=== PATIENT | female | born 1965 | race Caucasian/White ===

== ENCOUNTER → 2025-01-18 | Outpatient (CLI) | payer BC, SELFPAY ==
--- NOTE | 2025-01-18 07:49 | VDLE_ITS ---
Reason For Study Reason For Study: RLE Pain RIGHT LEFT CFV is compressible, phasic, and INCOMPETENT for CFV is compressible, spontaneous, phasic, competent, greater than 1.0 second. and demonstrates normal augmentation. FV is compressible, spontaneous, phasic, competent and demonstrates normal augmentation. POP V is compressible, spontaneous, phasic, competent and demonstrates normal augmentation. T/P Trunk is compressible. PTV is compressible. RT PerV is compressible. SFJ is INCOMPETENT and measures 0.62 cm. GSV proximal thigh measures 0.63 x 0.64 cm. GSV at knee measures 1.37 x 1.92 cm. GSV INCOMPETENT throughout for greater than 0.5 seconds. SSV mid calf is competent and measures 0.29 x 0.36 cm. Perforating vessel mid calf is INCOMPETENT for greater than 0.5 seconds and measures 0.33 cm. Perforating vessel distal calf is INCOMPETENT for greater than 0.5 seconds and measures 0.38 cm. Procedure This is a venous duplex using B-mode, color flow and spectral Doppler. Exam performed in department. The exam was diagnostic. VL/Venous Duplex US, Unilateral Interpretation Summary Deep veins of the right lower extremity are patent and compressible segmentally . There is no evidence of right lower extremity deep vein thrombosis. The right great saphenous vein appears patent a nd compressible segmentally. Positive for reflux in the right common femoral vein, saphenofemoral junction, great saphenous vein throughout, retail leader veins in mid and distal calf Ordering Physician: Faiza Mcwilliams Referring Physician: Renee Avila Performed By: Sang Marquez RVT
== END | disposition home or self-care (01) ==
PROVIDERS: PCP Nurse Practitioner Family; Referring Provider Physician Assistant; Visit Provider Physician Assistant
DX: I83.891 Varicose veins of right lower extremity with other complications (principal); I83.009 Varicose veins of unspecified lower extremity with ulcer of unspecified site; L97.901 Non-pressure chronic ulcer of unspecified part of unspecified lower leg limited to breakdown of skin; I87.2 Venous insufficiency (chronic) (peripheral)
CPT/HCPCS: 93971

== ENCOUNTER 2025-03-13 06:42 | Day surgery (SDC) | payer BC, SELFPAY ==
[2025-03-12 08:30] VITALS: BMI 27.4
--- NOTE | 2025-03-13 07:53 | PCM.HP.STD ---
HPI - General HPI Narrative TAYLOR RUEDA, is a 59 F who presents with persistent venous stasis dermatitis in the R medial lower leg; has had venous ulceration in this location prior as well. Her dermatitis symptoms improve with topical steroid application, but quickly recur when she discontinues steroid. This has been persistent despite her adherence to conservative management measures including compression, leg elevation, and avoidance of prolonged idle sitting/standing. [facility] Medical History Wears glasses Home Medications Medication Instructions Recorded Last Taken Type conjugated estrogens 0.3 mg tablet 0.3 mg PO QDAY 12/26/24 Unknown History (Premarin) triamcinolone acetonide 0.025 % 1 applic topical QDAY PRN rash 12/26/24 Unknown History topical cream Allergy/AdvReac Type Severity Reaction Status Date / Time No Known Allergies Allergy Verified 02/07/25 10:29 Family History Other CVA (cerebral vascular accident) Cancer Heart disease Hypertension Myocardial infarction Social History Smoking Status: Never smoker ROS Constitutional Constitutional: Denies chills, fever(s), frequent falls, lethargy or weakness Eyes Eyes: Denies blind spots, change in vision or loss of vision ENT HEENT: Denies bleeding gums, hoarseness or sore throat Cardiovascular Cardiovascular: Denies abdominal pain, bluish discoloration of hand/feet, chest pain with activity, claudication, cold extremities, cyanosis, dyspnea on exertion, erythema on extremities, irregular heart rhythm, leg edema, leg ulcers, numbness in extremities or weakness in extremities Respiratory/Chest Respiratory/Chest: Denies cough, excessive phlegm production, shortness of breath at rest, shortness of breath with exertion or wheezing Gastrointestinal Gastrointestinal: Denies anorexia, change in stool character, constipation, diarrhea, melena or rectal bleeding Genitourinary Genitourinary: Denies dysuria or hematuria Musculoskeletal Musculoskeletal: Denies abnormal gait Integumentary Integumentary: Reports other Details: ; Denies erythema, non-healing lesions or wounds Neurologic Neurologic: Denies abnormal speech, focal weakness, headache(s), loss of vision, numbness, paresthesias or sensory deficit Hematologic/Lymphatic Hematologic/Lymphatic: Denies easy bleeding, easy bruising or lymphadenopathy Vital Signs Vital Signs Vital Signs: Weight Weight: 136 lb Body Mass Index (BMI) 27.4 Physical Exam Const alert, oriented x3, no apparent distress and healthy appearing General Appearance: cooperative; Negative for combative or lethargic Orientation / Consciousness: awake Exam Limitations: no limitations HEENT Head and Scalp: normocephalic and atraumatic Eyes EOMs intact bilaterally General Eye: normal appearance of both eyes Neck full ROM General: trachea midline Resp normal respiratory effort and no use of accessory muscles Effort and Inspection: Negative for labored, stridor or audible wheezes Cardio regular rate and regular rhythm Back/Spine Cervical Spine: cervical ROM normal Neuro oriented x3, CN's II-XII intact bilaterally, no focal motor deficits and no sensory deficits noted Psych thought process normal, cooperative, affect normal, speech normal and activity/motor behavior normal Assessment & Plan Assessment/Plan (1) Venous stasis ulcer limited to breakdown of skin with varicose veins: QUALIFIERS: Venous stasis ulcer site: ankle Laterality: right Qualified Code(s): I83.013 - 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
--- NOTE | 2025-03-13 14:38 | OP.PCM_ITS ---
Operative Report (Standard) Operative Information Date of Procedure: 03/13/25 Pre-Operative Diagnosis: Venous insufficiency with stasis dermatitis of the right medial lower leg and varicosities Post-Operative Diagnosis: Same Surgery/Procedure Performed: Aborted chemical ablation of the right accessory saphenous vein due to vessel tortuosity and inability to advance wires for access senior environmental scientist: No Type of Anesthesia: Local and Sedation,Conscious Procedure Start Time: 08:30 Procedure Stop Time: 09:00 Select all DRAINS/GRAFTS/IMPLANTS that apply: None Estimated Blood Loss: 5 Specimen collected: No Description of surgery: HPI: Patient is a 59-year-old female with venous insufficiency the right lower extremity with stasis dermatitis that has persisted and worsened despite compliance with compression therapy. She has a single segment saphenous vein that actually appears to be accessory saphenous that is continuous from the saphenofemoral junction to the ankle with reflux throughout. Multiple varicosities emanate from this vessel and there are also segments of enlargement intermittently throughout the length of the vein with adjacent smaller caliber segments. She is taken now for planned chemical ablation. Description of procedure: Upon obtaining informed consent and verification correct patient procedure site the patient was taken the Grease Worker where she was positioned prepped and draped in usual sterile fashion. Timeouts performed consultation administered Versed and fentanyl. Ultrasound used to evaluate saphenous vein from the ankle to the saphenofemoral junction found to be continuous but with areas of enlarged discrete segments and also that the intervening segments were smaller caliber than they had been on the mapping likely due to spasm. We located a position that appeared to be favorable for access and the skin was anesthetized with 1% lidocaine. Utilizing a micropuncture needle wire we accessed the saphenous vein in the mid calf and were able to successfully gain access however the wire would not traverse the areas of a large caliber successfully. After multiple efforts to redirect we decided to access the vessel more cephalad on the leg and again were able to make successful access but unable to advance her wire beyond the next area of an large caliber. After multiple efforts to redirect and reaccessed at these locations we decided that this was futile so efforts were ceased. And pressure was held over the access sites and dry sterile dressing applied. Is felt that the patient would be a potential candidate for foam sclerotherapy with Varithena to treat the truncal vein and/or focal warehouse associate ablation for the 2 perforators in the calf. The patient was taken the recovery area with plan discharged home with possible return for secondary efforts. Surgical Findings: Tortuous accessory saphenous vein which was the dominant saphenous vein in the right lower extremity with multiple areas of enlargement with adjacent small caliber outflow vessel Complications Complications: Yes Complication Details: Failure to successfully gain access
== END 2025-03-13 10:00 | disposition home or self-care (01) ==
PROVIDERS: PCP Nurse Practitioner Family; Referring Provider Surgery Trauma Surgery; Visit Provider Surgery Trauma Surgery
DX: I87.2 Venous insufficiency (chronic) (peripheral) (principal); L97.311 Non-pressure chronic ulcer of right ankle limited to breakdown of skin; I83.013 Varicose veins of right lower extremity with ulcer of ankle; Z53.09 Procedure and treatment not carried out because of other contraindication
CPT/HCPCS: 36482; 76937; 99152; 99153; C1894; C1769

== ENCOUNTER 2025-05-02 08:18 | Day surgery (SDC) | payer BC, SELFPAY ==
[2025-05-01 08:35] VITALS: BMI 27.3
--- NOTE | 2025-05-02 13:35 | OP.PCM_ITS ---
Operative Report (Standard) Operative Information Date of Procedure: 05/02/25 Pre-Operative Diagnosis: Varicose veins with pain and recurrent stasis dermatitis and ulceration of the right lower extremity with incompetent great saphenous vein and perforators Post-Operative Diagnosis: Same Surgery/Procedure Performed: Radiofrequency ablation of right calf certified nursing assistant instructor veins x 3 hydrographical technical officer: No Type of Anesthesia: Local and Sedation,Conscious Procedure Start Time: 09:45 Procedure Stop Time: 10:30 Select all DRAINS/GRAFTS/IMPLANTS that apply: None Estimated Blood Loss: 4 Specimen collected: No Description of surgery: HPI: Patient is a 59-year-old female with varicose veins with pain of the right lower extremity as well as stasis dermatitis and skin breakdown. She has valvular incompetence in the great saphenous vein though this vessel is very tortuous with multiple branches requiring foam sclerotherapy rather than traditional ablation. She also has 3 large certified nursing assistant instructor veins distributed throughout the calf that also have incompetence. She is taken now for certified nursing assistant instructor ablation. Description of procedure: Upon obtaining informed consent and verification of correct patient procedure and site the patient was taken to the Dental Billing Specialist where she was positioned prepped and draped in usual sterile fashion. Timeouts performed consultation administered Versed and and fentanyl ultrasound used to evaluate the certified nursing assistant instructor veins all of which had adequate depth to treat with the ablation probe. Skin overlying the more distal certified nursing assistant instructor was anesthetized 1% lidocaine and skin incision made with 11 blade. Through the puncture the ablation stylette was advanced under ultrasound guidance accessing the certified nursing assistant instructor vein. The ablation generator displayed satisfactory resistance of 200 to 400 ohms. The generator was then activated for total of 8 minutes in the 4 quadrants of the certified nursing assistant instructor vein after which the stylette was withdrawn. The vein was then evaluated ultrasound and found to have been ablated in satisfactory fashion. Next the skin overlying the second certified nursing assistant instructor vein was Nestabs 1% lidocaine and skin incision made with 11 blade. Through the puncture site the stylette was advanced under ultrasound guidance accessing the perf orator vein. Again the ablation generator displayed satisfactory assistance of 200 to 400 ohms. The generator was then activated for total of 8 minutes in the 4 quadrants of the certified nursing assistant instructor vein after which the stylette was withdrawn. The vein was evaluated ultrasound found to have been ablated in satisfactory fashion. Finally skin overlying the third certified nursing assistant instructor vein was anesthetized 1% lidocaine skin incision made with 11 blade. Through the puncture site the stylette was advanced under ultrasound guidance access in the certified nursing assistant instructor vein. The ablation generator displayed satisfactory distance of 200 400 ohms so it was then activated for total of 8 minutes in the 4 quadrants of the certified nursing assistant instructor. After completion of therapy the certified nursing assistant instructor stylette was withdrawn and the vessel assessed ultrasound and found to be ablated in satisfactory fashion. [place] dressing was then applied followed by Raffi wrap's to the knee afterwards the patient was taken to the recovery area with plan discharged home. Surgical Findings: See above Complications Complications: No
== END 2025-05-02 11:30 | disposition home or self-care (01) ==
PROVIDERS: PCP Nurse Practitioner Family; Referring Provider Surgery Trauma Surgery; Visit Provider Surgery Trauma Surgery
DX: I87.2 Venous insufficiency (chronic) (peripheral) (principal); I83.013 Varicose veins of right lower extremity with ulcer of ankle; L97.311 Non-pressure chronic ulcer of right ankle limited to breakdown of skin; I83.811 Varicose veins of right lower extremity with pain; I83.891 Varicose veins of right lower extremity with other complications
CPT/HCPCS: 36475; 36476; 99152; 99153; C1888

== ENCOUNTER 2025-05-09 09:24 | Day surgery (SDC) | payer BC, SELFPAY ==
[2025-05-02 08:36] VITALS: BMI 21.4
--- NOTE | 2025-05-09 19:38 | PCM.OPRPT ---
Operative Report (Standard) Operative Information Date of Procedure: 05/09/25 Pre-Operative Diagnosis: Venous insufficiency with recurrent though healed ulceration and chronic dermatitis Post-Operative Diagnosis: Same Surgery/Procedure Performed: Foam ablation of the right great saphenous vein wine bottle inspector: No Type of Anesthesia: Local Procedure Start Time: 12:45 Procedure Stop Time: 13:15 Select all DRAINS/GRAFTS/IMPLANTS that apply: None Estimated Blood Loss: 3 Specimen collected: No Description of surgery: HPI: Patient is a 59-year-old female with recurrent episodes of ulceration of the right lower extremity and venous stasis dermatitis with reflux throughout the great saphenous vein as well as multiple control systems developer veins. She previously had the control systems developer veins treated with thermal ablation she presents now for foam sclerosant of the great saphenous vein. Description of procedure: Upon obtaining informed consent and verification correct patient procedure site the patient was taken to the Hazmat Tanker Driver she was position prepped and draped in usual sterile fashion. Ultrasound was used to evaluate the great saphenous vein from the distal calf to the saphenofemoral junction. Given the length of treatment is felt the 2 access sites for foam infusion were required so skin overlying the great saphenous vein in the proximal calf was anesthetized 1% lidocaine the vessel accessed under ultrasound guidance with a micropuncture needle wire. This was exchanged for a micropuncture sheath which was advanced without resistance. Next the skin overlying the great saphenous vein in the distal calf was anesthetized 1% lidocaine and the vessel accessed under ultrasound guidance with a micropuncture needle and wire. This is then exchanged for a second micropuncture sheath which was advanced over the wire without resistance. Foam sclerosant was then infused via the proximal calf access sheath under ultrasound visualization until it reached approximately 5 cm distal to the saphenofemoral junction at which point manual pressure was held for 3 minutes. When pressure was released the foam had ceased its transit at the site of compression and there was adequate filling of the great saphenous vein down to the access site. Next additional foam was infused via the great saphenous at the distal calf under ultrasound visualization until its transit had reached the initial access site. The saphenofemoral junction was again assessed with ultrasound and found to be patent with no evidence of further foam transit and no evidence of thrombus. The access sheath withdrawn manner pressure held till hemostasis was obtained. Dry sterile dressing and Raffi wrap were then applied the patient was taken the recovery area with plan discharge to home. Surgical Findings: See above Complications Complications: No
--- NOTE | 2025-05-09 19:38 | PCM.OPRPT ---
Operative Report (Standard) Operative Information Date of Procedure: 05/09/25 Pre-Operative Diagnosis: Venous insufficiency with recurrent though healed ulceration and chronic dermatitis Post-Operative Diagnosis: Same Surgery/Procedure Performed: Foam ablation of the right great saphenous vein emergency dispatcher: No Type of Anesthesia: Local Procedure Start Time: 12:45 Procedure Stop Time: 13:15 Select all DRAINS/GRAFTS/IMPLANTS that apply: None Estimated Blood Loss: 3 Specimen collected: No Description of surgery: HPI: Patient is a 59-year-old female with recurrent episodes of ulceration of the right lower extremity and venous stasis dermatitis with reflux throughout the great saphenous vein as well as multiple coagulating operator veins. She previously had the coagulating operator veins treated with thermal ablation she presents now for foam sclerosant of the great saphenous vein. Description of procedure: Upon obtaining informed consent and verification correct patient procedure site the patient was taken to the Optical Design Engineer she was position prepped and draped in usual sterile fashion. Ultrasound was used to evaluate the great saphenous vein from the distal calf to the saphenofemoral junction. Given the length of treatment is felt the 2 access sites for foam infusion were required so skin overlying the great saphenous vein in the proximal calf was anesthetized 1% lidocaine the vessel accessed under ultrasound guidance with a micropuncture needle wire. This was exchanged for a micropuncture sheath which was advanced without resistance. Next the skin overlying the great saphenous vein in the distal calf was anesthetized 1% lidocaine and the vessel accessed under ultrasound guidance with a micropuncture needle and wire. This is then exchanged for a second micropuncture sheath which was advanced over the wire without resistance. Foam sclerosant was then infused via the proximal calf access sheath under ultrasound visualization until it reached approximately 5 cm distal to the saphenofemoral junction at which point manual pressure was held for 3 minutes. When pressure was released the foam had ceased its transit at the site of compression and there was adequate filling of the great saphenous vein down to the access site. Next additional foam was infused via the great saphenous at the distal calf under ultrasound visualization until its transit had reached the initial access site. The saphenofemoral junction was again assessed with ultrasound and found to be patent with no evidence of further foam transit and no evidence of thrombus. The access sheath withdrawn manner pressure held till hemostasis was obtained. Dry sterile dressing and Raffi wrap were then applied the patient was taken the recovery area with plan discharge to home. Surgical Findings: See above Complications Complications: No
== END 2025-05-09 13:40 | disposition home or self-care (01) ==
PROVIDERS: PCP Nurse Practitioner Family; Referring Provider Surgery Trauma Surgery; Visit Provider Surgery Trauma Surgery
DX: I87.2 Venous insufficiency (chronic) (peripheral) (principal); I83.013 Varicose veins of right lower extremity with ulcer of ankle; L97.311 Non-pressure chronic ulcer of right ankle limited to breakdown of skin; I83.891 Varicose veins of right lower extremity with other complications; L30.9 Dermatitis, unspecified
CPT/HCPCS: 36465; C1894

== ENCOUNTER → 2025-05-13 | Outpatient (CLI) | payer BC, SELFPAY ==
--- NOTE | 2025-05-13 08:52 | VDLE_ITS ---
Reason For Study Reason For Study: Right leg pain RIGHT LEFT CFV is compressible, spontaneous, phasic, competent CFV is compressible, spontaneous, phasic, competent, and demonstrates normal augmentation. and demonstrates normal augmentation. FV is compressible, spontaneous, phasic, competent and demonstrates normal augmentation. POP V is compressible, spontaneous, phasic, competent and demonstrates normal augmentation. T/P Trunk is compressible. PTV is compressible. RT PerV is compressible. GSV is occluded throught s/p Verithena ablation. Perforators noted in the calf s/p ablation. Procedure This is a venous duplex using B-mode, color flow and spectral Doppler. Exam performed in department. VL/Venous Duplex US, Unilateral Interpretation Summary Deep veins of the right lower extremity are patent and compressible segmentally . There is no evidence of right lower extremity deep vein thrombosis. Right great saphenous vein occluded consistent with recent ablation. Right calf platform inspector veins occluded consistent with recent ablation. Ordering Physician: Faiza Mcwilliams Referring Physician: Renee Avila Performed By: Hannah Arreguin RVT
== END | disposition home or self-care (01) ==
LOC: CVS 08:51
PROVIDERS: PCP Nurse Practitioner Family; Referring Provider Surgery Trauma Surgery; Visit Provider Surgery Trauma Surgery
DX: I83.013 Varicose veins of right lower extremity with ulcer of ankle (principal); L97.311 Non-pressure chronic ulcer of right ankle limited to breakdown of skin; I83.891 Varicose veins of right lower extremity with other complications; I87.2 Venous insufficiency (chronic) (peripheral); Z48.812 Encounter for surgical aftercare following surgery on the circulatory system
CPT/HCPCS: 93971

== ENCOUNTER → 2025-05-16 | Outpatient (CLI) | payer BC, SELFPAY ==
--- NOTE | 2025-05-16 10:52 | VDLE_ITS ---
Reason For Study Reason For Study: Pain RIGHT LEFT CFV is compressible, spontaneous, phasic, competent CFV is compressible, spontaneous, phasic, competent, and demonstrates normal augmentation. and demonstrates normal augmentation. FV is compressible, spontaneous, phasic, competent and demonstrates normal augmentation. POP V is compressible, spontaneous, phasic, competent and demonstrates normal augmentation. T/P Trunk is compressible. PTV is compressible. RT PerV is compressible. GSV is occluded throught s/p Verithena ablation. Perforators noted in the calf s/p ablation. Procedure This is a venous duplex using B-mode, color flow and spectral Doppler. Exam performed in department. A preliminary report was called and/or faxed to [facility]. VL/Venous Duplex US, Unilateral Interpretation Summary Deep veins of the right lower extremity are patent and compressible segmentally . There is no evidence of right lower extremity deep vein thrombosis. Right great saphenous vein occluded consistent with recent ablation. Right calf abrasive worker veins occluded consistent with recent ablation. Ordering Physician: Faiza Mcwilliams Referring Physician: Faiza Mcwilliams Performed By: Megan Cervantes RVT
--- OUTSIDE RECORDS SUMMARY | 2025-05-16 21:32 | XMS RPT_ITS | CCD ---
Author Organization [facility] Care Team Providers Care Renal Social Worker Name Role Phone [facility]USTIN NEUROLOGY STROKE PHYSICIAN-DUTY OFFICER, RENEE Funez Primary Care Physician KEYANNA HERR Attending Unavailable AVILA NEUROLOGY STROKE PHYSICIAN-DUTY OFFICER, RENEE Funez Primary Care Unavai lable AVILA NEUROLOGY STROKE PHYSICIAN-DUTY OFFICER, RENEE Funez Attending Unavai lable AVILA NEUROLOGY STROKE PHYSICIAN-DUTY OFFICER, RENEE Funez Primary Care Unavai lable AVILA NEUROLOGY STROKE PHYSICIAN-DUTY OFFICER, RENEE Funez Attending Unavai lable AVILA NEUROLOGY STROKE PHYSICIAN-DUTY OFFICER, RENEE Funez Primary Care PHOEBE Mejía MD Attending Unavailable AVILA NEUROLOGY STROKE PHYSICIAN-DUTY OFFICER, RENEE Funez Primary Care Unavai lable AVILA NEUROLOGY STROKE PHYSICIAN-DUTY OFFICER, RENEE Funez Attending Unavai lable AVILA NEUROLOGY STROKE PHYSICIAN-DUTY OFFICER, RENEE Funez Primary Care Faiza Orozco Attending Provider Austin VARGAS-CRenee Primary Care Provider Dr. Balbina Elder MD Referring Provider [phone] Faiza Braswell Referring Provider [phone] Roly Flores MD Attending Provider Austin VARGAS-CRenee Referring Provider Dr. Roly Flores MD Referring Provider Dr. Roly Flores MD Other Provider AUSTIN MATTHEWS-MICHELLE, RENEE Funez Primary Care Physician [facility]IN NEUROLOGY STROKE PHYSICIAN-DUTY OFFICER, RENEE Funez Primary Care Unavai lable AVILA NEUROLOGY STROKE PHYSICIAN-DUTY OFFICER, RENEE Funez Attending Unavai lable AVILA NEUROLOGY STROKE PHYSICIAN-DUTY OFFICER, RENEE Funez Primary Care Ladarius KELLEY MD, PHOEBE Le Attending Unavailable Avila ASIAN ART CURATOR-C, [facility] Care Provider Poppy LEACH, Faiza Attending Provider [phone] Balbina Elder Referring Unavailable Avila ASIAN ART CURATOR, [facility] Unavailable Mcwilliams, Faiza Attending Unavailable Mark, Roly Attending Unavailable Avila ASIAN ART CURATOR, [facility] Unavailable Paoli, Roly Attending Unavailable Paoli, Roly Referring Unavailable Avila ASIAN ART CURATOR, [facility] Care Unavailable Avila ASIAN ART CURATOR, [facility] Unavailable Mcwilliams, Faiza Referring Unavailable Mcwilliams, Faiza Attending Unavailable Paoli, Roly Attending Unavailable Paoli, Roly Referring Unavailable Avila ASIAN ART CURATOR, [facility] Care Unavailable Paoli, Roly Attending Unavailable Paoli, Roly Referring Unavailable Avila ASIAN ART CURATOR, [facility] Unavailable Mark, Roly Attending Unavailable Mark, Roly Referring Unavailable Avila ASIAN ART CURATOR, [facility] Care Unavailable Mark, Roly Attending Unavailable Mcwilliams, Faiza Referring Unavailable Avila ASIAN ART CURATOR, [facility] Care Unavailable Paoli, Roly Attending Unavailable Mark, Roly Consulting Unavailable Mark, Roly Referring Unavailable Avila ASIAN ART CURATOR, [facility] Care Unavailable Paoli, Roly Attending Unavailable Mark, Roly Consulting Unavailable Paoli, Roly Referring Unavailable Avila ASIAN ART CURATOR, [facility] Care Unavailable Paoli, Roly Attending Unavailable Mark, Roly Consulting Unavailable Mark, Roly Referring Unavailable Avila ASIAN ART CURATOR, [facility] Care Unavailable Avila ASIAN ART CURATOR, [facility] Referring Unavailable Mcwilliams, Faiza Attending Unavailable Avila ASIAN ART CURATOR, [facility] Care Unavailable Mcwilliams, Faiza Attending Unavailable Avila ASIAN ART CURATOR, [facility] Care Unavailable Avila ASIAN ART CURATOR, [facility] Referring Unavailable Medications Current Medications Medication Drug Class(es) Dates Sig (Normalized) Sig (Original) estrogens, conjugated (mcfp) 0.3 mg oral tablet (11 sources) Estrogen Start: 12-26-2024 take 1 tablet by mouth once daily Conjugated Estrogens (Premarin) 0.3 mg tablet Active 0.3 mg PO daily December 26, 2024 1:00am cyclically Start: 12-14-2024 Premarin 0.625 mg/g vaginal cream with applicator See Instructions, 0.5 gram(s) Vaginal twice weekly, # 30 gram(s), 0 Refill(s), Pharmacy: [facility]/pharmacy #[id number], Menopausal vaginal dryness, 173, cm, 11/12/24 8:04:00 EST, Height, kg, 11/12/24 8:04:00 EST, Dosing Weight Start Date: 12/14/24 Status: Ordered Quantity: 30.0 Unit: g Repeat number: 1 Indications: Menopausal and female climacteric states; Start: 03-08-2024 Premarin 0.625 mg/g vaginal cream with applicator See Instructions, 0.5 gram(s) Vaginal twice weekly, # 30 gram(s), 0 Refill(s), Pharmacy: [facility] #[id number], Menopausal vaginal dryness, 172.5, cm, 03/08/24 9:02:00 EDT, Height, kg, 03/08/24 9:02:00 EDT, Dosing Weight Start Date: 03/08/24 Status: Ordered Multivitamin preparation (4 sources) Start: 05-09-2024 take 1 tablet by mouth once daily Multivitamin Dose = 1 tab(s), Oral, Daily, 0 Refill(s) Start Date: 05/09/24 Status: Ordered Repeat number: 1 Start: 05-09-2024 take 1 tablet by ricardo th once daily Multivitamin Dose = 1 tab(s), Oral, Daily, 0 Refill(s) Start Date: 05/09/24 Status: Ordered PEG-3350 with Electrolytes (Eqv-GoLYTELY) oral powder for reconstitution (2 sources) Start: 04-25-2024 PEG-3350 with Electrolytes (Eqv-GoLYTELY) oral powder for reconstitution See Instructions, Take as directed 1 day before colonoscopy. Follow instructions as provided by your GI provider at [facility]., # 1 EA, 0 Refill(s), Pharmacy: [facility] #[id number], 172, cm, 04/25/24 11:19:00 EDT, Height, kg, 04/25/24 11:19:00 EDT, Dosing Weight Start Date: 04/25/24 Status: Ordered triamcinolone acetonide 0.25 mg/ml topical cream (5 sources) Corticosteroid Start: 12-26-2024 Triamcinolone Acetonide 0.025 % cream Active 1 NMA TOPICAL daily as needed for rash December 26, 2024 1:00am Problems Problem Classification Problem Date Documented Date Episodic/Chronic Cancer of cervix (2 sources) Atypical squamous cells cannot exclude high grade squamous intraepithelial lesion on cytologic smear of cervix (ASC-H); Translations: [Atypical squamous cells cannot exclude high grade squamous intraepithelial lesion on cytologic smear] Onset: 05-28-2024 Episodic Chronic ulcer of skin (1 source) 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; Translations: [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] Onset: 04-01-2025 Chronic Other diseases of veins and lymphatics (14 sources) Disorder of vein of lower extremity; Translations: [Venous insufficiency (chronic) (peripheral)] 12-26-2024 Episodic Other diseases of veins and lymphatics (2 sources) Venous insufficiency (chronic) (peripheral); Translations: [Venous insufficiency (chronic) (peripheral)] Onset: 05-13-2025 Episodic Other female genital disorders (2 sources) Cervical intraepithelial neoplasia grade 1 06-21-2024 Episodic Other screening for suspected conditions (not mental disorders or infectious disease) (5 sources) Abnormal cytological finding in specimen from female genital organ; Translations: [Encounter for screening for malignant neoplasm of colon] Onset: 05-09-2024 05-28-2024 Episodic Unclassified (2 sources) Patient encounter status 12-20-2024 Varicose veins of lower extremity (20 sources) Venous varices; Translations: [Varicose veins of right lower extremity with other complications] Onset: 01-22-2025 12-26-2024 Episodic Results Test Name Value Interpretation Reference Range Facility Venous Duplex US, Unilateral on 05-13-2025 Venous Duplex US, Unilateral [facility] [address] [place] [address] Venous Duplex US, Unilateral 05/13/25 0905 MR#: [id number] Acct: [id number] Name: TAYLOR RUEDA Rep #: [id number] : 1965 59 From: Roly Flores MD Attending Dr: Dr. Roly Flores MD Status: SHANON DURÁN Ordering Dr: Faiza Mcwilliams Date: 05/13/25 Location: [facility] Sex: F C Admitted: Reason For Study Reason For Study: Right leg pain RIGHT LEFT CFV is compressible, spontaneous, phasic, competent CFV is compressible, spontaneous, phasic, competent, and demonstrates normal augmentation. and demonstrates normal augmentation. FV is compressible, spontaneous, phasic, competent and demonstrates normal augmentation. POP V is compressible, spontaneous, phasic, competent and demonstrates normal augmentation. T/P Trunk is compressible. PTV is compressible. RT PerV is compressible. GSV is occluded throught s/p Verithena ablation. Perforators noted in the calf s/p ablation. Procedure This is a venous duplex using B-mode, color flow and spectral Doppler. Exam performed in department. VL/Venous Duplex US, Unilateral Interpretation Summary Deep veins of the right lower extremity are patent and compressible segmentally. There is no evidence of right lower extremity deep vein thrombosis. Right great saphenous vein occluded consistent with recent ablation. Right calf senior software qa engineer veins occluded consistent with recent ablation. Ordering Physician: Faiza Mcwilliams Referring Physician: Renee Avila Performed By: Hannah Arreguin RVT 05/13/25 1113 Date Roly Flores MD CC: NAVID Avila; HANY Burch; Dr. Roly Flores MD Date Dictated: 05/13/25 09 Date Transcribed: 05/13/25 111 Fittings Tightener: Signed Normal [facility] Operative Reporton Operative Report [facility] Medical Records Department [address] [place] [address] Operative Report 05/09/25 1938 MR#: [id number] Acct: [id number] Name: MOHITTAYLOR IMER Rep #: [id number] : 1965 59 From: Roly Flores MD PCP: NAVID Lopez Status:[facility] Location: [facility] Operative Report (Standard) Operative Information Date of Procedure: 05/09/25 Pre-Operative Diagnosis: Venous insufficiency with recurrent though healed ulceration and chronic dermatitis Post-Operative Diagnosis: Same Surgery/Procedure Performed: Foam ablation of the right great saphenous vein pharmacy sales representative: No Type of Anesthesia: Local Procedure Start Time: 12:45 Procedure Stop Time: 13:15 Select all DRAINS/GRAFTS/IMPLANTS that apply: None Estimated Blood Loss: 3 Specimen collected: No Description of surgery: HPI: Patient is a 59-year-old female with recurrent episodes of ulceration of the right lower extremity and venous stasis dermatitis with reflux throughout the great saphenous vein as well as multiple senior software qa engineer veins. She previously had the senior software qa engineer veins treated with thermal ablation she presents now for foam sclerosant of the great saphenous vein. Description of procedure: Upon obtaining informed consent and verification correct patient procedure site the patient was taken to the Adjunct Spanish Instructor she was position prepped and draped in usual sterile fashion. Ultrasound was used to evaluate the great saphenous vein from the distal calf to the saphenofemoral junction. Given the length of treatment is felt the 2 access sites for foam infusion were required so skin overlying the great saphenous vein in the proximal calf was anesthetized 1% lidocaine the vessel accessed under ultrasound guidance with a micropuncture needle wire. This was exchanged for a micropuncture sheath which was advanced without resistance. Next the skin overlying the great saphenous vein in the distal calf was anesthetized 1% lidocaine and the vessel accessed under ultrasound guidance with a micropuncture needle and wire. This is then exchanged for a second micropuncture sheath which was advanced over the wire without resistance. Foam sclerosant was then infused via the proximal calf access sheath under ultrasound visualization until it reached approximately 5 cm distal to the saphenofemoral junction at which point manual pressure was held for 3 minutes. When pressure was released the foam had ceased its transit at the site of compression and there was adequate filling of the great saphenous vein down to the access site. Next additional foam was infused via the great saphenous at the distal calf under ultrasound visualization until its transit had reached the initial access site. The saphenofemoral junction was again assessed with ultrasound and found to be patent with no evidence of further foam transit and no evidence of thrombus. The access sheath withdrawn manner pressure held till hemostasis was obtained. Dry sterile dressing and Raffi wrap were then applied the patient was taken the recovery area with plan discharge to home. Surgical Findings: See above Complications Complications: No 05/09/251944 Cosigner Signature (if applicable): CC: NAVID Avila; Dr. Roly Flores MD Signed [facility] Operative Reporton Operative Report [facility] Medical Records Department [address] [place] [address] Operative Report 05/02/25 1335 MR#: [id number] Acct: [id number] Name: TAYLOR RUEDA Rep #: [id number] : 1965 59 From: Roly Flores MD PCP: NAVID Lopez [place] [place] [facility] Operative Report (Standard) Operative Information Date of Procedure: 05/02/25 Pre-Operative Diagnosis: Varicose veins with pain and recurrent stasis dermatitis and ulceration of the right lower extremity with incompetent great saphenous vein and perforators Post-Operative Diagnosis: Same Surgery/Procedure Performed: Radiofrequency ablation of right calf senior software qa engineer veins x 3 pharmacy sales representative: No Type of Anesthesia: Local and Sedation,Conscious Procedure Start Time: 09:45 Procedure Stop Time: 10:30 Select all DRAINS/GRAFTS/IMPLANTS that apply: None Estimated Blood Loss: 4 Specimen collected: No Description of surgery: HPI: Patient is a 59-year-old female with varicose veins with pain of the right lower extremity as well as stasis dermatitis and skin breakdown. She has valvular incompetence in the great saphenous vein though this vessel is very tortuous with multiple branches requiring foam sclerotherapy rather than traditional ablation. She also has 3 large senior software qa engineer veins distributed throughout the calf that also have incompetence. She is taken now for senior software qa engineer ablation. Description of procedure: Upon obtaining informed consent and verification of correct patient procedure and site the patient was taken to the Adjunct Spanish Instructor where she was positioned prepped and draped in usual sterile fashion. Timeouts performed consultation administered Versed and and fentanyl ultrasound used to evaluate the senior software qa engineer veins all of which had adequate depth to treat with the ablation probe. Skin overlying the more distal senior software qa engineer was anesthetized 1% lidocaine and skin incision made with 11 blade. Through the puncture the ablation stylette was advanced under ultrasound guidance accessing the senior software qa engineer vein. The ablation generator displayed satisfactory resistance of 200 to 400 ohms. The generator was then activated for total of 8 minutes in the 4 quadrants of the senior software qa engineer vein after which the stylette was withdrawn. The vein was then evaluated ultrasound and found to have been ablated in satisfactory fashion. Next the skin overlying the second senior software qa engineer vein was Nestabs 1% lidocaine and skin incision made with 11 blade. Through the puncture site the stylette was advanced under ultrasound guidance accessing the senior software qa engineer vein. Again the ablation generator displayed satisfactory assistance of 200 to 400 ohms. The generator was then activated for total of 8 minutes in the 4 quadrants of the senior software qa engineer vein after which the stylette was withdrawn. The vein was evaluated ultrasound found to have been ablated in satisfactory fashion. Finally skin overlying the third senior software qa engineer vein was anesthetized 1% lidocaine skin incision made with 11 blade. Through the puncture site the stylette was advanced under ultrasound guidance access in the senior software qa engineer vein. The ablation generator displayed satisfactory distance of 200 400 ohms so it was then activated for total of 8 minutes in the 4 quadrants of the senior software qa engineer. After completion of therapy the senior software qa engineer stylette was withdrawn and the vessel assessed ultrasound and found to be ablated in satisfactory fashion. [place] dressing was then applied followed by Raffi wrap's to the knee afterwards the patient was taken to the recovery area with plan discharged home. Surgical Findings: See above Complications Complications: No 05/02/25 1343 Cosigner Signature (if applicable): CC: NAVID Avila; Dr. Roly Flores MD Signed [facility] MR/BMS.BVSon 04-10-2025 MR/BMS.BVS [facility] [address] [place] [address] OFFICE VISIT Date of Service: 04/10/25 MR#: [id number] Acct: [id number] Name: TAYLOR RUEDA Rep #: [id number] : 1965 Provider: HANY Burch Age/Sex: 59/F Location: [facility] Status: Signed Intake Vital Signs 03/13/25 06:58 04/10/25 14:01 Height 4 ft 11 in Weight: 131 lb BP 147/83 H Blood Pressure Location Lt brachial Position Sitting Respiration 16 Pulse 85 Pulse Source Monitor Temp 97.3 F L Temp Source Temporal Pulse Oximetry (%) 97 Oxygen Delivery Method room air Intake Visit Reasons: Post Chemical Ablation 3-4 WK FU Allergies No Known Allergies Allergy (Verified 02/07/25 10:29) Is last menstrual period known: No Post menopausal: Yes Patient : No Have you fallen in the past year?: No PFSH Medical History (Updated 04/10/25 @ 14:01 by Brit Rose) Colon abnormality ( 05/2024) Wears glasses Family History Other CVA (cerebral vascular accident) Cancer Heart disease Hypertension Myocardial infarction Social History Smoking Status: Never smoker HPI HPI HPI: TAYLOR RUEDA, is a 59 F who presents to the office today for follow-up after aborted chemical adhesive ablation of the right accessory saphenous vein due to vessel tortuosity and inability to advance wires for access on 03/13/25. Given this, will now consider foam sclerotherapy +/- RFA of calf perforators. Recall that intervention is being pursued due to persistent/worsening venous stasis dermatitis in her right lower legs which corresponds to the location of incompetent perforators and saphenous vein identified on her recent venous reflux study. She also has a history of prior venous ulceration in the RLE as well though presently this is healed. ROS General General: No weight change, appetite, fatigue, colon cancer, breast cancer or weakness HEENT HEENT: No difficulty swallowing, eye injury, eye surgery, swollen glands or hoarseness Endo Endocrine: No thyroid disease, diabetes mellitus, thyroid cancer, Hair loss, heat intolerance or cold intolerance Skin Skin: Yes rash; No changing moles Musc Musculoskeletal: No back problems, arthritis, rheumatoid arthritis, gout or joint pain Cardio Cardiovascular: No murmur, pacemaker, heart disease, atrial fibrillation, high blood pressure, heart attack, heart stent, palpitations, shortness of breath with exertion or chest pain Psych Psychiatric: No depression, anxiety or hearing voices Resp Respiratory: No shortness of breath, No sleep apnea, No cough, No COPD, No asthma, No emphysema and No wheezing Gastro Gastrointestinal: No abdominal pain, No nausea or vomiting, No diarrhea, No constipation, No blood in stool, No acid reflux, No hemorrhoids, No ulcers, No gallbladder problem and No black,tarry stools Keven Hematologic: No blood thinners, No blood disorders, No bleeding, No anemia and No blood clots Neuro Neurologic: No system reviewed and no additional complaints, except as documented, No as per HPI, No abnormal gait, No abnormal hearing, No abnormal movements, No abnormal speech, No behavioral changes, No burning sensations, No confusion, No convulsions, No disequilibrium, No dizziness, No localized weakness, No frequent falls, Yes headache(s), No lack of coordination, No loss of vision, No memory loss, No numbness, No other visual disturbances, No radicular pain, No restless legs, No sensory deficit, No syncope, No tingling, No tremor(s), No weakness and No other Exam Const General: cooperative, comfortable and no acute distress Orientation: alert, awake and oriented x3 HENMT Head: normal to inspection, normocephalic and atraumatic Ears: hearing grossly normal bilaterally and external ears normal Nose: external nose normal Eyes General: appearance normal, both eyes and all related structures EOM: EOM intact bilaterally Neck Neck: normal visual inspection and trachea midline Carotids: no bruits Resp Effort Inspection: normal respiratory effort, able to speak in complete sentences, not labored, no respiratory distress, no retractions, no stridor and no use of accessory muscles Auscultation: clear to auscultation bilaterally Cardio Rate: regular rate Rhythm: regular rhythm Heart Sounds: no murmurs Bruits: no carotid bruits Pulses: brachial pulses present and radial pulses present Skin General: no rashes or lesions noted Trauma: no lacerations or abrasions Wounds: wounds noted Other: R medial lower leg with an area of focal red/purple discoloration with very superficial skin breakdown centrally with no significant drainage on my exam; no excess warmth to (more content not included)... [facility] .Auto Diffon 04-06-2025 Basophil, Absolute 0.0 10 3/mcL Normal 0.0-0.3 [facility] Comment on above: Performed By: #### G FR, ADIFF, CMP, ANEU, CBC, TSH, LIPID #### [address] [address] Basophils/100 WBC (Bld) 0.9 % Normal 0.0-2.5 [facility] Comment on above: Performed By: #### G FR, ADIFF, CMP, ANEU, CBC, TSH, LIPID #### [address] [address] Eosinophil, Absolute 0.1 10 3/mcL Normal 0.0-0.7 [facility] Comment on above: Performed By: #### G FR, ADIFF, CMP, ANEU, CBC, TSH, LIPID #### [address] [address] Eosinophils/100 WBC (Bld) 2.2 % Normal 0.0-6.0 [facility] Comment on above: Performed By: #### G FR, ADIFF, CMP, ANEU, CBC, TSH, LIPID #### [address] [address] Lymphocyte, Absolute 1.6 10 3/mcL Normal 0.9-4.3 [facility] Comment on above: Performed By: #### G FR, ADIFF, CMP, ANEU, CBC, TSH, LIPID #### [address] [address] Lymphocytes/100 WBC (Bld) 40.2 % High 20.0-40.0 [facility] Comment on above: Performed By: #### G FR, ADIFF, CMP, ANEU, CBC, TSH, LIPID #### [address] [address] Monocyte, Absolute 0.3 10 3/mcL Normal 0.1-1.4 [facility] Comment on above: Performed By: #### G FR, ADIFF, CMP, ANEU, CBC, TSH, LIPID #### [address] [address] Monocytes/100 WBC (Bld) 8.6 % Normal 2.0-13.0 [facility] Comment on above: Performed By: #### G FR, ADIFF, CMP, ANEU, CBC, TSH, LIPID #### [address] [address] Neutrophils/100 WBC (Bld) 48.1 % Low 50.0-75.0 [facility] Comment on above: Performed By: #### G FR, ADIFF, CMP, ANEU, CBC, TSH, LIPID #### [address] [address] .GFRon 04-06-2025 Estimated Glomerular Filtration Rate 99 ml/min/1.73sqm Normal [facility] Comment on above: Result Comment: Stages of Chronic Kidney Disease (CKD) Stage Description eGFR(ml/min/1.73 sq.m.) CKD 1 Normal kidney function or >=90 normal kindney function with possible kidney damage (ex. Proteinuria) CKD 2 Kidney damage with mild loss 60-89 of kidney function CKD 3a Mild to moderate loss of kidney 45-59 function CKD 3b Moderate to severe loss of 30-44 of kindey function CKD 4 Severe loss of kidney function 15-29 CKD 5 Kidney failure <15 Note: (go live 2024) the eGFR calculation was updated to the 2020 CKD-EPI creatinine equation without a race factor to calculate the eGFR results. Performed By: #### G FR, ADIFF, CMP, ANEU, CBC, TSH, LIPID #### [address] [address] .NEUABSon 04-06-2025 Neutrophil, Absolute 2.0 10 3/mcL Low 2.3-8.1 [facility] Comment on above: Performed By: #### G FR, ADIFF, CMP, ANEU, CBC, TSH, LIPID #### [address] [address] CBCon 04-06-2025 Erythrocyte distribution width (RBC) [Ratio] 13.0 % Normal 11.5-15.5 [facility] Comment on above: Performed By: #### G FR, ADIFF, CMP, ANEU, CBC, TSH, LIPID #### [address] [address] Hematocrit (Bld) [Volume fraction] 38.2 % Normal 34.0-46.0 [facility] Comment on above: Performed By: #### G FR, ADIFF, CMP, ANEU, CBC, TSH, LIPID #### [address] [address] Hgb 13.0 G/dL Normal 12.0-16.0 [facility] Comment on above: Performed By: #### G FR, ADIFF, CMP, ANEU, CBC, TSH, LIPID #### [place] [address] MCH (RBC) [Entitic mass] 30.5 pg Normal 27.0-33.0 [facility] Comment on above: Performed By: #### G FR, ADIFF, CMP, ANEU, CBC, TSH, LIPID #### [place] [address] MCHC 34.0 G/dL Normal 32.0-36.0 [facility] Comment on above: Performed By: #### G FR, ADIFF, CMP, ANEU, CBC, TSH, LIPID #### [address] [address] MCV (RBC) [Entitic vol] 89.7 fL Normal 80.0-99.0 [facility] Comment on above: Performed By: #### G FR, ADIFF, CMP, ANEU, CBC, TSH, LIPID #### [address] [address] Platelet 303 10 3/mcL Normal 150-450 [facility] Comment on above: Performed By: #### G FR, ADIFF, CMP, ANEU, CBC, TSH, LIPID #### [address] [address] Platelet mean volume (Bld) [Entitic vol] 8.1 fL Normal 6.6-10.5 [facility] Comment on above: Performed By: #### G FR, ADIFF, CMP, ANEU, CBC, TSH, LIPID #### [address] [address] RBC 4.26 10 6/mcL Normal 4.10-5.30 [facility] Comment on above: Performed By: #### G FR, ADIFF, CMP, ANEU, CBC, TSH, LIPID #### [address] [address] WBC 4.1 10 3/mcL Low 4.5-10.8 [facility] Comment on above: Performed By: #### G FR, ADIFF, CMP, ANEU, CBC, TSH, LIPID #### [address] [address] CMPon 04-06-2025 Albumin Level 3.7 G/dL Normal 3.4-4.8 [facility] Comment on above: Performed By: #### G FR, ADIFF, CMP, ANEU, CBC, TSH, LIPID #### [address] [address] Albumin/Globulin [Mass ratio] 1.1 {ratio} Normal 1.1-2.5 [facility] Comment on above: Performed By: #### G FR, ADIFF, CMP, ANEU, CBC, TSH, LIPID #### [address] [address] ALP [Catalytic activity/Vol] 54 U/L Normal 40-135 [facility] Comment on above: Performed By: #### G FR, ADIFF, CMP, ANEU, CBC, TSH, LIPID #### [address] [address] ALT [Catalytic activity/Vol] 23 U/L Normal 14-59 [facility] Comment on above: Performed By: #### G FR, ADIFF, CMP, ANEU, CBC, TSH, LIPID #### [address] [address] AST [Catalytic activity/Vol] 15 U/L Normal 10-40 [facility] Comment on above: Performed By: #### G FR, ADIFF, CMP, ANEU, CBC, TSH, LIPID #### [address] [address] Bili Total 0.7 mg/dL Normal 0.2-1.0 [facility] Comment on above: Result Comment: Use of this assay is not recommended for patients undergoing treatment with eltrombopag due to the potential for falsely elevated results. Performed By: #### G FR, ADIFF, CMP, ANEU, CBC, TSH, LIPID #### [address] [address] BUN/Creatinine Ratio 14 ratio Normal 7-27 [facility] Comment on above: Performed By: #### G FR, ADIFF, CMP, ANEU, CBC, TSH, LIPID #### [address] [address] Calcium [Mass/Vol] 9.0 mg/dL Normal 8.4-10.2 [facility] Comment on above: Performed By: #### G FR, ADIFF, CMP, ANEU, CBC, TSH, LIPID #### [address] [address] Chloride [Moles/Vol] 103 mmol/L Normal 98-107 [facility] Comment on above: Performed By: #### G FR, ADIFF, CMP, ANEU, CBC, TSH, LIPID #### [address] [address] CO2 [Moles/Vol] 29 mmol/L Normal 23-31 [facility] Comment on above: Performed By: #### G FR, ADIFF, CMP, ANEU, CBC, TSH, LIPID #### [address] [address] Creatinine [Mass/Vol] 0.70 mg/dL Normal 0.51-0.95 [facility] Comment on above: Performed By: #### G FR, ADIFF, CMP, ANEU, CBC, TSH, LIPID #### [address] [address] Electrolyte Balance 7.0 mEq/L Normal 4.0-15.0 [facility] Comment on above: Performed By: #### G FR, ADIFF, CMP, ANEU, CBC, TSH, LIPID #### [address] [address] Globulin 3.5 G/dL Normal 2.7-4.4 [facility] Comment on above: Performed By: #### G FR, ADIFF, CMP, ANEU, CBC, TSH, LIPID #### [address] [address] Glucose [Mass/Vol] 87 mg/dL Normal 80-115 [facility] Comment on above: Performed By: #### G FR, ADIFF, CMP, ANEU, CBC, TSH, LIPID #### [place] [address] [place], [place] [address] Potassium [Moles/Vol] 4.5 mmol/L Normal 3.5-5.1 [facility] Comment on above: Performed By: #### G FR, ADIFF, CMP, ANEU, CBC, TSH, LIPID #### [address] [address] Sodium [Moles/Vol] 139 mmol/L Normal 136-145 [facility] Comment on above: Performed By: #### G FR, ADIFF, CMP, ANEU, CBC, TSH, LIPID #### [address] [address] Total Protein 7.2 G/dL Normal 6.4-8.2 [facility] Comment on above: Performed By: #### G FR, ADIFF, CMP, ANEU, CBC, TSH, LIPID #### [address] [address] Urea nitrogen [Mass/Vol] 10 mg/dL Normal 7-18 [facility] Comment on above: Performed By: #### G FR, ADIFF, CMP, ANEU, CBC, TSH, LIPID #### [address] [address] LABORATORYOrdered By: SYSTEM SYSTEM on 04-06-2025 Albumin BCP dye [Mass/Vol] 3.7 G/dL Normal 3.4 - 4.8 G/dL AO ADM SS Albumin/Globulin [Mass ratio] 1.1 {ratio} Normal 1.1 - 2.5 ratio AO ADM SS ALP [Catalytic activity/Vol] 54 U/L Normal 40 - 135 U/L AO ADM SS ALT With P-5'-P [Catalytic activity/Vol] 23 U/L Normal 14 - 59 U/L AO ADM SS AST With P-5'-P [Catalytic activity/Vol] 15 U/L Normal 10 - 40 U/L AO ADM SS Basophils (Bld) [#/Vol] 0.0 103/mcL Normal 0.0 - 0.3 10^3/mcL AO Workflow SS Basophils/100 WBC (Bld) 0.9 % Normal 0.0 - 2.5 % AO Workflow SS Bilirubin [Mass/Vol] 0.7 mg/dL Normal 0.2 - 1 .0 mg/dL AO ADM SS Comment on above: Interpretive Data: U se of this assay is not recommended for patients undergoing treatment with eltrombopag due to the potential for falsely elevated results. Calcium [Mass/Vol] 9.0 mg/dL Normal 8.4 - 10. 2 mg/dL AO ADM SS Chloride [Moles/Vol] 103 mmol/L Normal 98 - 10 7 mmol/L AO ADM SS CO2 [Moles/Vol] 29 mmol/L Normal 23 - 31 mmol/L AO ADM SS Creatinine [Mass/Vol] 0.70 mg/dL Normal 0.51 - 0.95 mg/dL AO ADM SS Electrolyte Balance 7.0 mEq/L Normal 4.0 - 15 .0 mEq/L AO ADM SS Eosinophil, Absolute 0.1 103/mcL Normal 0.0 - 0 .7 10^3/mcL AO Workflow SS Eosinophils/100 WBC (Bld) 2.2 % Normal 0.0 - 6.0 % AO Workflow SS Erythrocyte distribution width (RBC) [Ratio] 13.0 % Normal 11.5 - 15.5 % AO Workflow SS Estimated Glomerular Filtration Rate 99 ml/min/1.73sqm Invalid Interpretation Code AO Chemistry S Comment on above: Interpretive Data: Stages of Chronic Kidney Disease (CKD) Stage Description eGFR(ml/min/1.73 sq.m.) CKD 1 Normal kidney function or >=90 normal kindney function with possible kidney damage (ex. Proteinuria) CKD 2 Kidney damage with mild loss 60-89 of kidney function CKD 3a Mild to moderate loss of kidney 45-59 function CKD 3b Moderate to severe loss of 30-44 of kindey function CKD 4 Severe loss of kidney function 15-29 CKD 5 Kidney failure <15 Note: (go live 2024) the eGFR calculation was updated to the 2020 CKD-EPI creatinine equation without a race factor to calculate the eGFR results. Globulin 3.5 G/dL Normal 2.7 - 4.4 G/dL AO ADM SS Glucose [Mass/Vol] 87 mg/dL Normal 80 - 115 mg/dL AO ADM SS Hematocrit (Bld) [Volume fraction] 38.2 % Normal 34.0 - 46.0 % AO Workflow SS Hemoglobin (Bld) [Mass/Vol] 13.0 G/dL Normal 12.0 - 16.0 G/dL AO Workflow SS Lymphocytes (Bld) [#/Vol] 1.6 103/mcL Normal 0.9 - 4.3 10^3/mcL AO Workflow SS Lymphocytes/100 WBC (Bld) 40.2 % High 20.0 - 40.0 % AO Workflow SS MCH (RBC) [Entitic mass] 30.5 pg Normal 27.0 - 33.0 pg AO Workflow SS MCHC 34.0 G/dL Normal 32.0 - 36.0 G/dL AO Workflow SS MCV (RBC) [Entitic vol] 89.7 fL Normal 80.0 - 99.0 fL AO Workflow SS Monocytes (Bld) [#/Vol] 0.3 103/mcL Normal 0.1 - 1.4 10^3/mcL AO Workflow SS Monocytes/100 WBC (Bld) 8.6 % Normal 2.0 - 13.0 % AO Workflow SS Neutrophils (Bld) [#/Vol] 2.0 103/mcL Low 2.3 - 8.1 10^3/mcL AO Workflow SS Neutrophils/100 WBC (Bld) 48.1 % Low 50.0 - 75.0 % AO Workflow SS Platelet mean volume (Bld) [Entitic vol] 8.1 fL Normal 6.6 - 10.5 fL AO Workflow SS Platelets (Bld) [#/Vol] 303 103/mcL Normal 150 - 450 10^3/mcL AO Workflow SS Potassium [Moles/Vol] 4.5 mmol/L Normal 3.5 - 5.1 mmol/L AO ADM SS Protein [Mass/Vol] 7.2 G/dL Normal 6.4 - 8.2 G/dL AO ADM SS RBC (Bld) [#/Vol] 4.26 106/mcL Normal 4.10 - 5.3 0 10^6/mcL AO Workflow SS Sodium [Moles/Vol] 139 mmol/L Normal 136 - 145 mmol/L AO ADM SS TSH Qn 1.59 m[IU]/L Normal 0.36 - 3.74 mcIU/mL AO ADM SS Urea nitrogen [Mass/Vol] 10 mg/dL Normal 7 - 18 mg/dL AO ADM SS Urea nitrogen/Creatinine [Mass ratio] 14 ratio Normal 7 - 27 ratio AO ADM SS WBC (Bld) [#/Vol] 4.1 103/mcL Low 4.5 - 10.8 10^3/mcL AO Workflow SS LABORATORYOrdered By: Ely Chávez on 04-06-2025 Cholesterol [Mass/Vol] 198 mg/dL Normal 0 - 200 mg/dL AO ADM SS Comment on above: Interpretive Data: C holesterol Reference Interval: Less than 200 Desirable 200-239 Borderline high risk 240 and above High risk Cholesterol in HDL [Mass/Vol] 95 mg/dL High 40 - 60 mg/dL AO ADM SS Cholesterol in LDL [Mass/Vol] 95 mg/dL Normal 0 - 130 mg/dL AO ADM SS Triglyceride [Mass/Vol] 39 mg/dL Normal 0 - 150 mg/dL AO ADM SS Comment on above: Interpretive Data: T riglyceride Reference Interval: Less than 150 Normal 150-199 Borderline high risk 200-499 High risk 500 or higher Very high risk LIPIDon 04-06-2025 Cholesterol [Mass/Vol] 198 mg/dL Normal 0-200 [facility] Comment on above: Result Comment: Chol esterol Reference Interval: Less than 200 Desirable 200-239 Borderline high risk 240 and above High risk Performed By: #### G FR, ADIFF, CMP, ANEU, CBC, TSH, LIPID #### [place] [place], [place] [address] Cholesterol in HDL [Mass/Vol] 95 mg/dL High 40-60 [facility] Comment on above: Performed By: #### G FR, ADIFF, CMP, ANEU, CBC, TSH, LIPID #### [place] [address] [place], [place] [address] Cholesterol in LDL [Mass/Vol] 95 mg/dL Normal 0-130 [facility] Comment on above: Performed By: #### G FR, ADIFF, CMP, ANEU, CBC, TSH, LIPID #### [place] [address] [place], [place] [address] Triglyceride [Mass/Vol] 39 mg/dL Normal 0-150 [facility] Comment on above: Result Comment: Trig lyceride Reference Interval: Less than 150 Normal 150-199 Borderline high risk 200-499 High risk 500 or higher Very high risk Performed By: #### G FR, ADIFF, CMP, ANEU, CBC, TSH, LIPID #### [place] [address] [place], [place] [address] TSHon 04-06-2025 TSH Qn 1.59 m[IU]/L Normal 0.36-3.74 [facility] Comment on above: Performed By: #### G FR, ADIFF, CMP, ANEU, CBC, TSH, LIPID #### [place] [address] [place], [place] [address] Operative Reporton Operative Report [facility] Medical Records Department [address] [place] [address] Operative Report 03/13/25 1438 MR#: [id number] Acct: [id number] Name: TAYLOR RUEDA Rep #: [id number] : 1965 59 From: Roly Flores MD PCP: NAVID Lopez Status:[facility] Location: [facility] Operative Report (Standard) Operative Information Date of Procedure: 03/13/25 Pre-Operative Diagnosis: Venous insufficiency with stasis dermatitis of the right medial lower leg and varicosities Post-Operative Diagnosis: Same Surgery/Procedure Performed: Aborted chemical ablation of the right accessory saphenous vein due to vessel tortuosity and inability to advance wires for access pharmacy sales representative: No Type of Anesthesia: Local and Sedation,Conscious Procedure Start Time: 08:30 Procedure Stop Time: 09:00 Select all DRAINS/GRAFTS/IMPLANTS that apply: None Estimated Blood Loss: 5 Specimen collected: No Description of surgery: HPI: Patient is a 59-year-old female with venous insufficiency the right lower extremity with stasis dermatitis that has persisted and worsened despite compliance with compression therapy. She has a single segment saphenous vein that actually appears to be accessory saphenous that is continuous from the saphenofemoral junction to the ankle with reflux throughout. Multiple varicosities emanate from this vessel and there are also segments of enlargement intermittently throughout the length of the vein with adjacent smaller caliber segments. She is taken now for planned chemical ablation. Description of procedure: Upon obtaining informed consent and verification correct patient procedure site the patient was taken the Adjunct Spanish Instructor where she was positioned prepped and draped in usual sterile fashion. Timeouts performed consultation administered Versed and fentanyl. Ultrasound used to evaluate saphenous vein from the ankle to the saphenofemoral junction found to be continuous but with areas of enlarged discrete segments and also that the intervening segments were smaller caliber than they had been on the mapping likely due to spasm. We located a position that appeared to be favorable for access and the skin was anesthetized with 1% lidocaine. Utilizing a micropuncture needle wire we accessed the saphenous vein in the mid calf and were able to successfully gain access however the wire would not traverse the areas of a large caliber successfully. After multiple efforts to redirect we decided to access the vessel more cephalad on the leg and again were able to make successful access but unable to advance her wire beyond the next area of an large caliber. After multiple efforts to redirect and reaccessed at these locations we decided that this was futile so efforts were ceased. And pressure was held over the access sites and dry sterile dressing applied. Is felt that the patient would be a potential candidate for foam sclerotherapy with Varithena to treat the truncal vein and/or focal senior software qa engineer ablation for the 2 perforators in the calf. The patient was taken the recovery area with plan discharged home with possible return for secondary efforts. Surgical Findings: Tortuous accessory saphenous vein which was the dominant saphenous vein in the right lower extremity with multiple areas of enlargement with adjacent small caliber outflow vessel Complications Complications: Yes Complication Details: Failure to successfully gain access 03/13/25 4504 Cosigner Signature (if applicable): CC: NAVID Avila; Dr. Roly Flores MD Signed Normal [facility] MR/BMS.Loki 02-07-2025 MR/BMS.BEHZAD [facility] Vascular Surgery [address] [place] [address] OFFICE VISIT Date of Service: 02/07/25 MR#: [id number] Acct: [id number] Name: TAYLOR RUEDA Rep #: [id number] : 1965 Provider: HANY Burch Age/Sex: 59/F Location: [facility] Status: Signed Intake Vital Signs 02/07/25 10:28 Weight: 136 lb BP 139/87 H Blood Pressure Location Lt brachial Position Sitting Respiration 16 Pulse 64 Pulse Source Monitor Temp 98.2 F Temp Source Temporal Pulse Oximetry (%) 99 Oxygen Delivery Method room air Intake Visit Reasons: 6 WK FU Chief Complaint: establish care Is patient in pain?: No Allergies No Known Allergies Allergy (Verified 02/07/25 10:29) Medications ???Medication ???Instructions ???Recorded ???Confirmed ???Type conjugated estrogens 0.3 mg tablet 0.3 mg PO QDAY 12/26/24 02/07/25 History (Premarin) triamcinolone acetonide 0.025 % 1 applic topical QDAY PRN 12/26/24 02/07/25 History topical cream Is last menstrual period known: No Post menopausal: Yes Patient : No Have you fallen in the past year?: No PFSH Family History Other CVA (cerebral vascular accident) Cancer Heart disease Hypertension Myocardial infarction Social History Smoking Status: Never smoker HPI HPI HPI: TAYLOR RUEDA, is a 59 F who presents to the office today for follow-up of varicose veins and venous stasis dermatitis and to discuss venous reflux study results. She has persistent venous stasis dermatitis in the R medial lower leg; has had venous ulceration in this location prior as well. Her dermatitis symptoms improve with topical steroid application, but quickly recur when she discontinues steroid. This has been persistent despite her adherence to conservative management measures including compression, leg elevation, and avoidance of prolonged idle sitting/standing. ROS General General: No weight change, appetite, fatigue, colon cancer, breast cancer or weakness HEENT HEENT: No difficulty swallowing, eye injury, eye surgery, swollen glands or hoarseness Endo Endocrine: No thyroid disease, diabetes mellitus, thyroid cancer, Hair loss, heat intolerance or cold intolerance Skin Skin: Yes rash; No changing moles Musc Musculoskeletal: No back problems, arthritis, rheumatoid arthritis, gout or joint pain Cardio Cardiovascular: No murmur, pacemaker, heart disease, atrial fibrillation, high blood pressure, heart attack, heart stent, palpitations, shortness of breath with exertion or chest pain Psych Psychiatric: No depression, anxiety or hearing voices Resp Respiratory: No shortness of breath, No sleep apnea, No cough, No COPD, No asthma, No emphysema and No wheezing Gastro Gastrointestinal: No abdominal pain, No nausea or vomiting, No diarrhea, No constipation, No blood in stool, No acid reflux, No hemorrhoids, No ulcers, No gallbladder problem and No black,tarry stools Keven Hematologic: No blood thinners, No blood disorders, No bleeding, No anemia and No blood clots Neuro Neurologic: No system reviewed and no additional complaints, except as documented, No as per HPI, No abnormal gait, No abnormal hearing, No abnormal movements, No abnormal speech, No behavioral changes, No burning sensations, No confusion, No convulsions, No disequilibrium, No dizziness, No localized weakness, No frequent falls, No headache(s), No lack of coordination, No loss of vision, No memory loss, No numbness, No other visual disturbances, No radicular pain, No restless legs, No sensory deficit, No syncope, No tingling, No tremor(s), No weakness and No other Exam Const General: cooperative, comfortable and no acute distress Orientation: alert, awake and oriented x3 HENMT Head: normal to inspection, normocephalic and atraumatic Ears: hearing grossly normal bilaterally and external ears normal Nose: external nose normal Eyes General: appearance normal, both eyes and all related structures EOM: EOM intact bilaterally Neck Neck: normal visual inspection and trachea midline Carotids: no bruits Resp Effort Inspection: normal respiratory effort, able to speak in complete sentences, not labored, no respiratory distress, no retractions, no stridor and no use of accessory muscles Auscultation: clear to auscultation bilaterally Cardio Rate: regular rate Rhythm: regular rhythm Heart Sounds: no murmurs Bruits: no carotid bruits Pulses: brachial pulses present and radial pulses present Skin General: no rashes or lesions noted Trauma: no lacerations or abrasions Wounds: wounds noted Other: R medial lower leg with an area of focal red/purple discoloration with very super (more content not included)... Normal [facility] Venous duplex ultrasound rep ortOrdered By: Roly Flores on 01-21-2025 US Vein [facility] Cardi[facility] [address] [place] [address] Venous Duplex US, Unilateral 01/18/25 0807 MR#: [id number] Acct: [id number] Name: TAYLOR RUEDA Rep #:[id number] : 1965 59 From: Roly De Guzman Attending Dr: HANY Burch Stat us: REG CLI Ordering Dr: Faiza Mcwilliams Date: Location: CVS Sex: F C Admitted: Reason For Study Reason For Study: RLE Pain RIGHT LEFT CFV is compressible, phasic, and INCOMPETENT for CFV is compressible, spontaneous, phasic, competent, greater than 1.0 second. and demonstrates normal augmentation. FV is compressible, spontaneous, phasic, competent and demonstrates normal augmentation. POP V is compressible, spontaneous, phasic, competent and demonstrates normal augmentation. T/P Trunk is compressible. PTV is compressible. RT PerV is compressible. SFJ is INCOMPETENT and measures 0.62 cm. GSV proximal thigh measures 0.63 x 0.64 cm. GSV at knee measures 1.37 x 1.92 cm. GSV INCOMPETENT throughout for greater than 0.5 seconds. SSV mid calf is competent and measures 0.29 x 0.36 cm. Perforating vessel mid calf is INCOMPETENT for greater than 0.5 seconds and measures 0.33 cm. Perforating vessel distal calf is INCOMPETENT for greater than 0.5 seconds and measures 0.38 cm. Procedure This is a venous duplex using B-mode, color flow and spectral Doppler. Exam performed in department. The exam was diagnostic. VL/Venous Duplex US, Unilateral Interpretation Summary Deep veins of the right lower extremity are patent and compressible segmentally.There is no evidence of right lower extremity deep vein thrombosis. The right great saphenous vein appears patent and compressible segmentally. Positive for reflux in the right common femoral vein, saphenofemoral junction, great saphenous vein throughout, senior software qa engineer veins in mid and distal calf Ordering Physician: Faiza Mcwilliams Referring Physician: Renee Avila Performed By: Sang Marquez, RVT 01/21/25 1313 Date _ Roly Flores MD CC: ASIAN ART CURATOR-C Renee Avila; HANY Burch ~ Date Dictated: 01/18/25 0807 Date Transcribed: 01/21/251312 Fittings Tightener: Signed [facility] Work Phone: Venous Duplex US, Unilateral on 01-18-2025 Venous Duplex US, Unilateral [facility] [address] [place] [address] Venous Duplex US, Unilateral 01/18/25 0807 MR#: [id number] Acct: [id number] Name: TAYLOR RUEDA Rep #: [id number] : 1965 59 From: Roly Flores MD Attending Dr: HANY Burch Status: REG CLI Ordering Dr: Faiza Mcwilliams Date: 01/18/25 Location: CVS Sex: F C Admitted: Reason For Study Reason For Study: RLE Pain RIGHT LEFT CFV is compressible, phasic, and INCOMPETENT for CFV is compressible, spontaneous, phasic, competent, greater than 1.0 second. and demonstrates normal augmentation. FV is compressible, spontaneous, phasic, competent and demonstrates normal augmentation. POP V is compressible, spontaneous, phasic, competent and demonstrates normal augmentation. T/P Trunk is compressible. PTV is compressible. RT PerV is compressible. SFJ is INCOMPETENT and measures 0.62 cm. GSV proximal thigh measures 0.63 x 0.64 cm. GSV at knee measures 1.37 x 1.92 cm. GSV INCOMPETENT throughout for greater than 0.5 seconds. SSV mid calf is competent and measures 0.29 x 0.36 cm. Perforating vessel mid calf is INCOMPETENT for greater than 0.5 seconds and measures 0.33 cm. Perforating vessel distal calf is INCOMPETENT for greater than 0.5 seconds and measures 0.38 cm. Procedure This is a venous duplex using B-mode, color flow and spectral Doppler. Exam performed in department. The exam was diagnostic. VL/Venous Duplex US, Unilateral Interpretation Summary Deep veins of the right lower extremity are patent and compressible segmentally. There is no evidence of right lower extremity deep vein thrombosis. The right great saphenous vein appears patent and compressible segmentally. Positive for reflux in the right common femoral vein, saphenofemoral junction, great saphenous vein throughout, senior software qa engineer veins in mid and distal calf Ordering Physician: Faiza Mcwilliams Referring Physician: Renee Avila Performed By: Sang Marquez Vadim 01/21/25 1313 Date Roly Flores MD CC: NAVID Avila; HANY Burch Date Dictated: 01/18/25 0807 Date Transcribed: 01/21/25 1313 Fittings Tightener: Signed [facility] Route Service Manager Cytology Reporton 2024 Route Service Manager Cytology Report . Pathology Reports Accession: Collected Date/Time: Received Date/Time: Pathologist: [id number] 12/20/2024 09:47 EST 12/20/2024 18:00 EST CHELO WOLFE MD Route Service Manager Cytology Report SPECIMEN: Specimen Description: Liquid Prep w/ HPV Specimen: Cervical/Endocervical Screening or Diagnostic: Screening RELEVANT HISTORY: LMP: 2014 Other clinical information: hx of derrick 1 s/p cryotherapy SPECIMEN ADEQUACY: SATISFACTORY FOR EVALUATION Endocervical/Transform ational zone component present INTERPRETATION/RESULTS : EPITHELIAL CELL ABNORMALITIES, SQUAMOUS Atypical squamous cells of undetermined significance (ASC-US) HIGH RISK HPV TESTING: Event Code Result HPV Interp See Interp HPVN HPV Interp Text: High Risk HPV Typing: NEGATIVE HPV types 16, 18, 31, 33, 35, 39, 45, 51, 52, 56, 58, 59, 66 and 68 DNA were undetectable or below the pre-set threshold. The jewels High-Risk HPV DNA Test is not intended for use as a screening device for Pap normal women under age 30 and is not intended to substitute for regular Pap screening. The jewels High-Risk HPV DNA Test is designed to augment existing methods for the detection of cervical disease and should be used in conjunction with clinical information derived from other diagnostic and screening tests, physical examinations and full medical history in accordance with appropriate patient management procedures. NOTE: A negative result does not preclude the presence of HPV infection because results depend on adequate specimen collection, absence of inhibitors and sufficient DNA to be detected. As of: 12/27/24 11:02 EST COMMENT: This Pap Test was successfully processed and evaluated with the assistance of the [employer] ThinPrep Test Imaging System. Pathology Reports Accession: Collected Date/Time: Received Date/Time: Pathologist: [id number] 12/20/2024 09:47 EST 12/20/2024 18:00 EST CHELO WOLFE MD Verified by Pathology report verified by [facility] Screened by: KULWANT NEW Electronically signed by CHELO WOLFE Sign-Out Date: 12/27/2024 12:06 Performing Lab: [facility], [address] [place] [address] Pathology Dept Disclaimer The Pap test is a screening test for cervical cancer. As evidenced by published data, it is subject to both inherent false negative and false positive results. Your patient's results should be interpreted in context with pertinent clinical history including gynecological examination. Normal [facility] MR/Yannick 12-26-2024 MR/BMSJESS [facility] Vascular Surgery [address] [place] [address] OFFICE VISIT Date of Service: 12/26/24 MR#: [id number] Acct: [id number] Name: TAYLOR RUEDA Rep #: [id number] : 1965 Provider: HANY Burch Age/Sex: 59/F Location: [facility] Status: Signed Intake Vital Signs 12/26/24 10:14 Weight: 137 lb BP 146/85 H Blood Pressure Location Lt brachial Position Sitting Respiration 16 Pulse 68 Pulse Source Monitor Temp 98.2 F Temp Source Temporal Pulse Oximetry (%) 99 Oxygen Delivery Method room air Intake Visit Reasons: NEW PATIENT : VARICOSE VEINS Chief Complaint: establish care Is patient in pain?: No Allergies No Known Allergies Allergy (Unverified 12/26/24 10:16) Medications ???Medication ???Instructions ???Recorded ???Confirmed ???Type conjugated estrogens 0.3 mg tablet 0.3 mg PO QDAY 12/26/24 12/26/24 History (Premarin) triamcinolone acetonide 0.025 % 1 applic topical QDAY PRN 12/26/24 12/26/24 History topical cream Is last menstrual period known: No Post menopausal: Yes Patient : No Have you fallen in the past year?: No Current gender identity: female PFSH Family History (Updated 12/26/24 @ 10:13 by Brit Rose) Other CVA (cerebral vascular accident) Cancer Heart disease Hypertension Myocardial infarction Social History (Updated 12/26/24 @ 10:14 by Birt Rose) Smoking Status: Never smoker HPI HPI HPI: TAYLOR RUEDA, is a 59 F who presents to the office today for evaluation of varicose veins and venous stasis dermatitis as referred from [facility] dermatology. She reports she developed this focal area of erythema, superficial skin breakdown with bleeding and drainage, itching, tenderness/pain on her medial right lower leg in August 2024. She saw her PCP who treated her for cellulitis with a round of antibiotics, she reports it never fully resolve but some of the redness improved and the bleeding/drainage stopped so she just kept monitoring. Then she presented to dermatology in October due to an unrelated widespread rash but they evaluated this area on her R leg as well. They diagnosed it as stasis dermatitis and prescribed a topical steroid which she applied BID x 14 days; she saw a bit more improvement in appearance and improvement in itching though still notes a lot of itching some days. She also has a large varicosity along the medial aspect of her R thigh and calf which she reports has been present for many years, started during . To this point, it had been fairly asymptomatic. She does notice some edema in her R ankle by the end of the day. She did start wearing 20-30 mmHg compression stockings in October, she notices less swelling while wearing them but has not noticed much added improvement in the area of dermatitis. She otherwise enjoys generally good health. She denies any SVT/DVT/PE. She denies any history of heart/lung/kidney disease, CVA/TIA, claudication, diabetes. She has never smoked. ROS General General: No weight change, appetite, fatigue, colon cancer, breast cancer or weakness HEENT HEENT: No difficulty swallowing, eye injury, eye surgery, swollen glands or hoarseness Endo Endocrine: No thyroid disease, diabetes mellitus, thyroid cancer, Hair loss, heat intolerance or cold intolerance Skin Skin: Yes rash; No changing moles Musc Musculoskeletal: No back problems, arthritis, rheumatoid arthritis, gout or joint pain Cardio Cardiovascular: No murmur, pacemaker, heart disease, atrial fibrillation, high blood pressure, heart attack, heart stent, palpitations, shortness of breat with exertion or chest pain Psych Psychiatric: No depression, anxiety or hearing voices Resp Respiratory: No shortness of breath, No sleep apnea, No cough, No COPD, No asthma, No emphysema and No wheezing Gastro Gastrointestinal: No abdominal pain, No nausea or vomiting, No diarrhea, No constipation, No blood in stool, No acid reflux, No hemorrhoids, No ulcers, No gallbladder problem and No black,tarry stools Keven Hematologic: No blood thinners, No blood disorders, No bleeding, No anemia and No blood clots Neuro Neurologic: No system reviewed and no additional complaints, except as documented, No as per HPI, No abnormal gait, No abnormal hearing, No abnormal movements, No abnormal speech, No behavioral changes, Yes burning sensations, No confusion, No convulsions, No disequilibrium, No dizziness, No localized weakness, No frequent falls, No headache(s), No lack of coordination, No loss of vision, No memory loss, No numbness, No other visual disturbances, Yes radicular pain, No restless legs, No sensory deficit, No syncope, No tingling, No tremor(s), No weakness and No other Exam Const General: cooperative, co (more content not included)... Normal [facility] HPVon 12-24-2024 HPV Interp Normal See Interp HPVN [facility] Comment on above: Order Comment: Order placed by AP_HPV_ORDER rule from [id number] Result Comment: High Risk HPV Typing: NEGATIVE HPV types 16, 18, 31, 33, 35, 39, 45, 51, 52, 56, 58, 59, 66 and 68 DNA were undetectable or below the pre-set threshold. The jewels High-Risk HPV DNA Test is not intended for use as a screening device for Pap normal women under age 30 and is not intended to substitute for regular Pap screening. The jewels High-Risk HPV DNA Test is designed to augment existing methods for the detection of cervical disease and should be used in conjunction with clinical information derived from other diagnostic and screening tests, physical examinations and full medical history in accordance with appropriate patient management procedures. NOTE: A negative result does not preclude the presence of HPV infection because results depend on adequate specimen collection, absence of inhibitors and sufficient DNA to be detected. See Interp HPVN Performed By: #### H PV #### [place] [address] HPV Source Cervix Normal [facility] Comment on above: Order Comment: Order placed by AP_HPV_ORDER rule from [id number] Performed By: #### H PV #### [place] [address] LABORATORYOrdered By: Rosemary Guerrero on 12-20-2024 HPV Interp High Risk HPV Typing : NEGATIVEHPV types 16, 18, 31, 33, 35, 39, 45, 51, 52, 56, 58, 59, 66 and 68 DNA wereundetectable or below the pre-set threshold.The jewels High-Risk HPV DNA Test is not intended for use as a screening device forPap normal women under age 30 and is not intended to substitute for regular Papscreening.The jewels High-Risk HPV DNA Test is designed to augment existing methods for thedetection of cervical disease and should be used in conjunction with clinicalinformation derived from other diagnostic and screening tests, physical examinationsand full medical history in accordance with appropriate patient managementprocedures.N OTE: A negative result does not preclude the presence of HPV infection because resultsdepend on adequate specimen collection, absence of inhibitors and sufficientDNA to be detected. Normal See Interp HPVN Auto Viro/Sero SS Specimen source Nom (Unsp spec) Cervix (12/20/24 9:47 AM) Normal Auto Viro/Sero SS Final Surgical Pathology Rep imelda 05-30-2024 Final Surgical Pathology Report . Pathology Reports Accession: Collected Date/Time: Received Date/Time: Pathologist: [id number] 05/28/2024 11:45 EDT 05/29/2024 08:11 EDT JANUSZ WILLIAM MD Final Surgical Pathology Report DIAGNOSIS: ENDOCERVIX, CURETTAGE: - LOW-GRADE LEODAN (DERRICK-1) CLINICAL INFORMATION: Procedure: COLPOSCOPY WITH ECC Preoperative diagnosis: ASCUS Postoperative diagnosis: BENIGN SPECIMEN: A ECC GROSS DESCRIPTION: All parts labelled with patient name and [id number] Received in formalin, labeled "ECC" is a suspension of mucoid possible pink-mccall tissue, in aggregate 0.5 x 0.5 x 0.1 cm. TS-1 Ok Bullard MD Performed by [facility] MICROSCOPIC DESCRIPTION: The microscopic examination is performed, except in the case of Gross Only. Electronically Signed by Pathology Report verified by [facility] JANUSZ WILLIAM Sign out Date: 05/30/2024 12:33 Performing Lab: [facility], [address] [place] [address] Pathology Dept Disclaimer If ancillary studies were utilized, the following Laboratory Developed Test (LDT) disclaimer will apply: Under CLIA requirements, [facility] Pathology Laboratory is qualified to perform high complexity testing. For all ancillary stains, positive and negative controls stain appropriately. Performance characteristics of immunohistochemical and chromogenic in-situ hybridization tests have been determined by [facility] Pathology Laboratory. These tests are used for clinical purposes, They should not be regarded as investigational or for research. Normal [facility] ([place]) Final Surgical Pathology Rep imelda 05-11-2024 Final Surgical Pathology Report . Pathology Reports Accession: Collected Date/Time: Received Date/Time: Pathologist: [id number] 05/09/2024 08:53 EDT 05/10/2024 07:53 EDT CHELO WOLFE MD Final Surgical Pathology Report DIAGNOSIS: RECTAL POLYP: - HYPERPLASTIC POLYP CLINICAL INFORMATION: Procedure: COLONOSCOPY WITH POLYPECTOMY Preoperative diagnosis: SCREENING Postoperative diagnosis: SCREENING SPECIMEN: A RECTAL POLYP GROSS DESCRIPTION: All parts labelled with patient name and [id number] Received in formalin, labeled "rectal polyp" is a single fragment of brown-mccall tissue measuring 0.4 x 0.3 x 0.2 cm. TS-1 Ok Bullard MD Performed by [facility] MICROSCOPIC DESCRIPTION: The microscopic examination is performed, except in the case of Gross Only. Electronically Signed by Pathology Report verified by [facility] CHELO WOLFE Sign out Date: 05/11/2024 09:56 Performing Lab: [facility], [address] [place] [address] Pathology Dept Disclaimer If ancillary studies were utilized, the following Laboratory Developed Test (LDT) disclaimer will apply: Under CLIA requirements, [facility] Pathology Laboratory is qualified to perform high complexity testing. For all ancillary stains, positive and negative controls stain appropriately. Performance characteristics of immunohistochemical and chromogenic in-situ hybridization tests have been determined by [facility] Pathology Laboratory. These tests are used for clinical purposes, They should not be regarded as investigational or for research. Normal [facility] ([place]) MA MAMMOGRAM SCREENING BILAT ERAL W/TOMOon 04-18-2024 MA MAMMOGRAM SCREENING BILATERAL W/WAI ORIGINAL FROM: [address] [address] PROCEDURE FOR: TAYLOR RUEDA [address] [place] [address] Home: PID#: [id number] Exam#: [id number] : 1965 Age: 58 TO: RENEE AVILA NP [facility] [place], [place] [address] EXAMINATION: SCREENING DIGITAL BILATERAL MAMMOGRAM WITH TOMOSYNTHESIS, 04/18/2024 7:15 am TECHNIQUE: Screening mammography of the bilateral breasts was performed with tomosynthesis. 2D standard and 3D tomosynthesis combination imaging performed through both breasts in the MLO and CC projection. Computer aided detection was utilized in the interpretation of this exam. COMPARISON: Baseline exam. HISTORY: Breast cancer screening. FINDINGS: BREAST DENSITY: The breasts are heterogeneously dense, which may obscure small masses. There is no suspicious mass, architectural distortion or microcalcification. IMPRESSION: No mammographic evidence of malignancy. Continued screening with annual mammograms is recommended. Santosh Gentile risk calculations, generated with the history provided, report this patient's 10 year risk and lifetime risk for developing breast cancer at 3.5% and 9.2%, respectively. Based on this assessment tool, if the patient's calculated lifetime risk is below 20%, then the patient is considered at average risk for developing breast cancer. If the patient's calculated lifetime risk is at or above 20%, then the patient is considered high risk for developing breast cancer and may be a candidate for supplemental breast MRI screening in addition to annual mammographic screening per the [employer]. BIRADS: MAMMOGRAM BI-RADS: 1: Negative RECALL: 1 year screening RECALL TYPE: mammo LETTER SENT: Normal BI-RADS 1 and 2 Interpreted by: Pamela Celis Preliminary Report By: Pamela Celis Electronically signed By Pamela Celis Dictated Date: 04/18/2024 8:17:39 AM Prelim Date: 04/18/2024 8:18:45 AM Sign Date: 04/18/2024 8:18:45 AM Ordering Provider: RENEE AVILA CLINICAL: BASELINE. Professor Of Literature: LORAINE PATTERSON RT(R)(M)(CT) letter sent: Normal BI-RADS 1 and 2 Mammogram BI-RADS: 1 Negative Normal [facility] ([place]) Route Service Manager Cytology Reporton 2023 Route Service Manager Cytology Report . Pathology Reports Accession: Collected Date/Time: Received Date/Time: Pathologist: [id number] 04/05/2024 09:48 EDT 04/05/2024 18:00 EDT CHELO WOLFE MD Route Service Manager Cytology Report SPECIMEN: Specimen Description: Liquid Prep w/ HPV Specimen: Cervical Screening or Diagnostic: Screening RELEVANT HISTORY: LMP: menopausal Post Menopausal: Yes SPECIMEN ADEQUACY: SATISFACTORY FOR EVALUATION Endocervical/Transform ational zone component present INTERPRETATION/RESULTS : EPITHELIAL CELL ABNORMALITIES, SQUAMOUS Atypical squamous cells, cannot exclude HSIL (ASC-H) HIGH RISK HPV TESTING: Event Code Result HPV Interp See Interp HPVN HPV Interp Text: High Risk HPV Typing: NEGATIVE HPV types 16, 18, 31, 33, 35, 39, 45, 51, 52, 56, 58, 59, 66 and 68 DNA were undetectable or below the pre-set threshold. The jewels High-Risk HPV DNA Test is not intended for use as a screening device for Pap normal women under age 30 and is not intended to substitute for regular Pap screening. The jewels High-Risk HPV DNA Test is designed to augment existing methods for the detection of cervical disease and should be used in conjunction with clinical information derived from other diagnostic and screening tests, physical examinations and full medical history in accordance with appropriate patient management procedures. NOTE: A negative result does not preclude the presence of HPV infection because results depend on adequate specimen collection, absence of inhibitors and sufficient DNA to be detected. As of: 04/13/24 12:38 EDT COMMENT: This Pap Test was successfully processed and evaluated with the assistance of the [employer] ThinPrep Test Imaging System. Pathology Reports Accession: Collected Date/Time: Received Date/Time: Pathologist: [id number] 04/05/2024 09:48 EDT 04/05/2024 18:00 EDT CHELO WOLFE MD Electronically Signed by Pathology report verified by [facility] Screened by: SARAH NEW Electronically signed by CHELO WOLFE Sign-Out Date: 04/16/2024 11:31 Performing Lab: [facility], [address] [place] [address] Pathology Dept Disclaimer The Pap test is a screening test for cervical cancer. As evidenced by published data, it is subject to both inherent false negative and false positive results. Your patient's results should be interpreted in context with pertinent clinical history including gynecological examination. Normal [facility] ([place]) HPVon 04-12-2024 HPV Interp Normal See Interp HPVN [facility] ([place]) Comment on above: Order Comment: Order placed by AP_HPV_ORDER rule from [id number] Result Comment: High Risk HPV Typing: NEGATIVE HPV types 16, 18, 31, 33, 35, 39, 45, 51, 52, 56, 58, 59, 66 and 68 DNA were undetectable or below the pre-set threshold. The jewels High-Risk HPV DNA Test is not intended for use as a screening device for Pap normal women under age 30 and is not intended to substitute for regular Pap screening. The jewels High-Risk HPV DNA Test is designed to augment existing methods for the detection of cervical disease and should be used in conjunction with clinical information derived from other diagnostic and screening tests, physical examinations and full medical history in accordance with appropriate patient management procedures. NOTE: A negative result does not preclude the presence of HPV infection because results depend on adequate specimen collection, absence of inhibitors and sufficient DNA to be detected. See [facility] HPVN Performed By: #### H PV #### [place] [address] HPV Source Cervix Normal [facility] ([place]) Comment on above: Order Comment: Order placed by AP_HPV_ORDER rule from [id number] Performed By: #### H PV #### [place] [address] .Auto Diffon 04-03-2024 Basophil, Absolute 0.0 10 3/mcL Normal 0.0-0.2 [facility] ([place]) Comment on above: Performed By: #### C BC, CMP, LIPID, GFR, TSH, ANEU, ADIFF #### [address] [address] #### HCV1 #### [place] [address] Basophils/100 WBC (Bld) 0.6 % Normal 0.0-2.5 [facility] ([place]) Comment on above: Performed By: #### C BC, CMP, LIPID, GFR, TSH, ANEU, ADIFF #### [place] [address] #### HCV1 #### [address] [address] Eosinophil, Absolute 0.1 10 3/mcL Normal 0.0-0.4 [facility] ([place]) Comment on above: Performed By: #### C BC, CMP, LIPID, GFR, TSH, ANEU, ADIFF #### [address] [address] #### HCV1 #### [address] [address] Eosinophils/100 WBC (Bld) 1.1 % Normal 0.0-7.0 [facility] ([place]) Comment on above: Performed By: #### C BC, CMP, LIPID, GFR, TSH, ANEU, ADIFF #### [place] [address] #### HCV1 #### [address] [address] Lymphocyte, Absolute 1.5 10 3/mcL Normal 0.8-3.9 [facility] ([place]) Comment on above: Performed By: #### C BC, CMP, LIPID, GFR, TSH, ANEU, ADIFF #### [place] [address] #### HCV1 #### [address] [address] Lymphocytes/100 WBC (Bld) 30.2 % Normal 10.0-50.0 [facility] ([place]) Comment on above: Performed By: #### C BC, CMP, LIPID, GFR, TSH, ANEU, ADIFF #### [place] [address] #### HCV1 #### [address] [address] Monocyte, Absolute 0.4 10 3/mcL Normal 0.2-1.0 [facility] ([place]) Comment on above: Performed By: #### C BC, CMP, LIPID, GFR, TSH, ANEU, ADIFF #### [place] [address] #### HCV1 #### [address] [place], [place] [address] Monocytes/100 WBC (Bld) 7.5 % Normal 1.7-13.0 [facility] ([place]) Comment on above: Performed By: #### C BC, CMP, LIPID, GFR, TSH, ANEU, ADIFF #### [address] [address] #### HCV1 #### [address] [address] Neutrophils/100 WBC (Bld) 60.6 % Normal 37.0-80.0 [facility] ([place]) Comment on above: Performed By: #### C BC, CMP, LIPID, GFR, TSH, ANEU, ADIFF #### [address] [address] #### HCV1 #### [address] [address] .GFRon 04-03-2024 GFR Non- 104 ml/min/1.73sqm Normal [facility] ([place]) Comment on above: Result Comment: GFR Population mean for , Non- Americans Ages 20-29 = 116 mL/min/1.73 sq.m. Ages 30-39 = 107 mL/min/1.73 sq.m. Ages 40-49 = 99 mL/min/1.73 sq.m. Ages 50-59 = 93 mL/min/1.73 sq.m. Ages 60-69 = 85 mL/min/1.73 sq.m. Ages 70+ = 75 mL/min/1.73 sq.m. Chronic Kidney Disease: Less than 60 mL/min/1.73 square meters End Stage Renal Disease: Less than 15 mL/min/1.73 square meters Performed By: #### C BC, CMP, LIPID, GFR, TSH, ANEU, ADIFF ####[address] [address]#### HCV1 ####[address] [address] GFR 126 ml/min/1.73sqm Normal [facility] ([place]) Comment on above: Result Comment: GFR Population mean for , Non- Americans Ages 20-29 = 116 mL/min/1.73 sq.m. Ages 30-39 = 107 mL/min/1.73 sq.m. Ages 40-49 = 99 mL/min/1.73 sq.m. Ages 50-59 = 93 mL/min/1.73 sq.m. Ages 60-69 = 85 mL/min/1.73 sq.m. Ages 70+ = 75 mL/min/1.73 sq.m. Chronic Kidney Disease: Less than 60 mL/min/1.73 square meters End Stage Renal Disease: Less than 15 mL/min/1.73 square meters Performed By: #### C BC, CMP, LIPID, GFR, TSH, ANEU, ADIFF ####[place] [address]#### HCV1 ####[address] [address] .NEUABSon 04-03-2024 Neutrophil, Absolute 3.0 10 3/mcL Normal 2.9-6.2 [facility] ([place]) Comment on above: Performed By: #### C BC, CMP, LIPID, GFR, TSH, ANEU, ADIFF #### [place] [address] #### HCV1 #### [place] [address] CBCon 04-03-2024 Erythrocyte distribution width (RBC) [Ratio] 13.2 % Normal 11.5-14.5 [facility] ([place]) Comment on above: Performed By: #### C BC, CMP, LIPID, GFR, TSH, ANEU, ADIFF #### [place] [address] #### HCV1 #### [place] [address] Hematocrit (Bld) [Volume fraction] 37.9 % Normal 37.0-47.0 [facility] ([place]) Comment on above: Performed By: #### C BC, CMP, LIPID, GFR, TSH, ANEU, ADIFF #### [place] [address] #### HCV1 #### [place] [address] Hgb 12.8 G/dL Normal 12.0-16.0 [facility] ([place]) Comment on above: Performed By: #### C BC, CMP, LIPID, GFR, TSH, ANEU, ADIFF #### [place] [address] #### HCV1 #### [place] [address] MCH (RBC) [Entitic mass] 30.6 pg Normal 27.0-31.2 [facility] ([place]) Comment on above: Performed By: #### C BC, CMP, LIPID, GFR, TSH, ANEU, ADIFF #### [place] [address] #### HCV1 #### [place] [address] MCHC 33.7 G/dL Normal 33.0-37.0 [facility] ([place]) Comment on above: Performed By: #### C BC, CMP, LIPID, GFR, TSH, ANEU, ADIFF #### [place] [address] #### HCV1 #### [place] [address] MCV (RBC) [Entitic vol] 90.9 fL Normal 80.0-94.0 [facility] ([place]) Comment on above: Performed By: #### C BC, CMP, LIPID, GFR, TSH, ANEU, ADIFF #### [place] [address] #### HCV1 #### [place] [address] Platelet 284 10 3/mcL Normal 130-400 [facility] ([place]) Comment on above: Performed By: #### C BC, CMP, LIPID, GFR, TSH, ANEU, ADIFF #### [place] [address] #### HCV1 #### [place] [address] Platelet mean volume (Bld) [Entitic vol] 8.5 fL Normal 7.4-10.4 [facility] ([place]) Comment on above: Performed By: #### C BC, CMP, LIPID, GFR, TSH, ANEU, ADIFF #### [address] [address] #### HCV1 #### [place] [address] RBC 4.17 10 6/mcL Low 4.20-5.40 [facility] ([place]) Comment on above: Performed By: #### C BC, CMP, LIPID, GFR, TSH, ANEU, ADIFF #### [place] [address] #### HCV1 #### [place] [address] WBC 5.0 10 3/mcL Normal 4.6-10.8 [facility] ([place]) Comment on above: Performed By: #### C BC, CMP, LIPID, GFR, TSH, ANEU, ADIFF #### [place] [address] #### HCV1 #### [place] [address] CMPon 04-03-2024 Albumin Level 4.0 G/dL Normal 3.5-5.0 [facility] ([place]) Comment on above: Performed By: #### C BC, CMP, LIPID, GFR, TSH, ANEU, ADIFF #### [place] [address] #### HCV1 #### [place] [address] Albumin/Globulin [Mass ratio] 1.3 {ratio} Normal 1.1-2.5 [facility] ([place]) Comment on above: Performed By: #### C BC, CMP, LIPID, GFR, TSH, ANEU, ADIFF #### [place] [address] #### HCV1 #### [address] [address] ALP [Catalytic activity/Vol] 52 U/L Normal 40-135 [facility] ([place]) Comment on above: Performed By: #### C BC, CMP, LIPID, GFR, TSH, ANEU, ADIFF #### [address] [address] #### HCV1 #### [address] [address] ALT [Catalytic activity/Vol] 28 U/L Normal 14-59 [facility] ([place]) Comment on above: Performed By: #### C BC, CMP, LIPID, GFR, TSH, ANEU, ADIFF #### [address] [address] #### HCV1 #### [address] [address] AST [Catalytic activity/Vol] 19 U/L Normal 10-40 [facility] ([place]) Comment on above: Performed By: #### C BC, CMP, LIPID, GFR, TSH, ANEU, ADIFF #### [address] [address] #### HCV1 #### [address] [address] Bili Total 0.5 mg/dL Normal 0.2-1.0 [facility] ([place]) Comment on above: Result Comment: Use of this assay is not recommended for patients undergoing treatment with eltrombopag due to the potential for falsely elevated results. Performed By: #### C BC, CMP, LIPID, GFR, TSH, ANEU, ADIFF #### [address] [address] #### HCV1 #### [address] [address] BUN/Creatinine Ratio 19 ratio Normal 7-27 [facility] ([place]) Comment on above: Performed By: #### C BC, CMP, LIPID, GFR, TSH, ANEU, ADIFF #### [address] [address] #### HCV1 #### [address] [address] Calcium [Mass/Vol] 8.7 mg/dL Normal 8.4-10.2 [facility] ([place]) Comment on above: Performed By: #### C BC, CMP, LIPID, GFR, TSH, ANEU, ADIFF #### [address] [address] #### HCV1 #### [address] [address] Chloride [Moles/Vol] 103 mmol/L Normal 98-107 [facility] ([place]) Comment on above: Performed By: #### C BC, CMP, LIPID, GFR, TSH, ANEU, ADIFF #### [place] [address] #### HCV1 #### [place] [address] CO2 [Moles/Vol] 26 mmol/L Normal 22-29 [facility] ([place]) Comment on above: Performed By: #### C BC, CMP, LIPID, GFR, TSH, ANEU, ADIFF #### [address] [address] #### HCV1 #### [place] [address] Creatinine [Mass/Vol] 0.59 mg/dL Normal 0.55-1.02 [facility] ([place]) Comment on above: Performed By: #### C BC, CMP, LIPID, GFR, TSH, ANEU, ADIFF #### [place] [address] #### HCV1 #### [address] [address] Electrolyte Balance 10.0 mEq/L Normal 4.0-15.0 [facility] ([place]) Comment on above: Performed By: #### C BC, CMP, LIPID, GFR, TSH, ANEU, ADIFF #### [address] [address] #### HCV1 #### [place] [address] Globulin 3.1 G/dL Normal [facility] ([place]) Comment on above: Performed By: #### C BC, CMP, LIPID, GFR, TSH, ANEU, ADIFF #### [address] [address] #### HCV1 #### [address] [address] Glucose [Mass/Vol] 97 mg/dL Normal 70-105 [facility] ([place]) Comment on above: Performed By: #### C BC, CMP, LIPID, GFR, TSH, ANEU, ADIFF #### [address] [address] #### HCV1 #### [address] [address] Potassium [Moles/Vol] 4.2 mmol/L Normal 3.5-5.1 [facility] ([place]) Comment on above: Performed By: #### C BC, CMP, LIPID, GFR, TSH, ANEU, ADIFF #### [address] [address] #### HCV1 #### [address] [address] Sodium [Moles/Vol] 139 mmol/L Normal 136-145 [facility] ([place]) Comment on above: Performed By: #### C BC, CMP, LIPID, GFR, TSH, ANEU, ADIFF #### [address] [address] #### HCV1 #### [address] [address] Total Protein 7.1 G/dL Normal 6.4-8.2 [facility] ([place]) Comment on above: Performed By: #### C BC, CMP, LIPID, GFR, TSH, ANEU, ADIFF #### [address] [address] #### HCV1 #### [address] [address] Urea nitrogen [Mass/Vol] 11 mg/dL Normal 7-18 [facility] ([place]) Comment on above: Performed By: #### C BC, CMP, LIPID, GFR, TSH, ANEU, ADIFF #### [address] [address] #### HCV1 #### [facility] [address] [place] [address] HCVon 04-03-2024 Hep C Ab Non-Reactive Normal Non-Reactive [facility] ([place]) Comment on above: Performed By: #### C BC, CMP, LIPID, GFR, TSH, ANEU, ADIFF ####[place] [address]#### HCV1 ####[facility] [place] [address] Hep C Ab Int Normal [facility] ([place]) Comment on above: Result Comment: Nonr eactive: Samples with a value < 0.80 are considered nonreactive (negative) for antibodies to HCV. A negative test result does not exclude the possibility of exposure to or infection with HCV. HCV antibodies may be undetectable in some stages of the infection and in some clinical conditions. See Interp Performed By: #### C BC, CMP, LIPID, GFR, TSH, ANEU, ADIFF ####[place] [address]#### HCV1 ####[address] [address] LIPIDon 04-03-2024 Cholesterol [Mass/Vol] 217 mg/dL High 0-200 [facility] ([place]) Comment on above: Result Comment: Chol esterol Reference Interval: Less than 200 Desirable 200-239 Borderline high risk 240 and above High risk Performed By: #### C BC, CMP, LIPID, GFR, TSH, ANEU, ADIFF ####[place] [address]#### HCV1 ####[address] [address] Cholesterol in HDL [Mass/Vol] 100 mg/dL High 40-60 [facility] ([place]) Comment on above: Performed By: #### C BC, CMP, LIPID, GFR, TSH, ANEU, ADIFF ####[address] [address]#### HCV1 ####[facility] [place] [address] Cholesterol in LDL [Mass/Vol] 110 mg/dL Normal 0-130 [facility] ([place]) Comment on above: Performed By: #### C BC, CMP, LIPID, GFR, TSH, ANEU, ADIFF ####[place] [address]#### HCV1 ####[address] [address] Triglyceride [Mass/Vol] 33 mg/dL Normal 0-150 [facility] ([place]) Comment on above: Result Comment: Trig lyceride Reference Interval: Less than 150 Normal 150-199 Borderline high risk 200-499 High risk 500 or higher Very high risk Performed By: #### C BC, CMP, LIPID, GFR, TSH, ANEU, ADIFF ####[place] [address]#### HCV1 ####[address] [address] TSHon 04-03-2024 TSH Qn 2.47 m[IU]/L Normal 0.36-3.74 [facility] ([place]) Comment on above: Performed By: #### C BC, CMP, LIPID, GFR, TSH, ANEU, ADIFF #### [address] [address] #### HCV1 #### [address] [address] Vital Signs Date Time Vital Sign Value Performing Clinician Facility 05-09-2025 09:38-0400 Body height 170.18 cm Renee HASSANC Work Phone: [facility] 05-09-2025 09:38-0400 Body weight 62.14 kg Renee Avila NP-C Work Phone: [facility] 05-02-2025 08:36-0400 Body mass index (BMI) [Ratio] 21.4 kg/m2 Renee Avila ASIAN ART CURATOR-C Work Phone: [facility] 05-01-2025 08:37-0400 Body weight 59.42 kg Renee Avila ASIAN ART CURATOR-C Work Phone: [facility] 05-01-2025 08:35-0400 Body mass index (BMI) [Ratio] 27.3 kg/m2 Renee Avila ASIAN ART CURATOR-C Work Phone: [facility] 04-10-2025 14:01-0400 Body temperature 97.3 [degF] Renee Avila ASIAN ART CURATOR-C Work Phone: [facility] 04-10-2025 14:01-0400 Body weight 59.42 kg Renee Avila ASIAN ART CURATOR-C Work Phone: [facility] 04-10-2025 14:01-0400 Diastolic blood pressure 83 mm[Hg] Renee Avila ASIAN ART CURATOR-C Work Phone: [facility] 04-10-2025 14:01-0400 Heart rate 85 /min Renee Avila ASIAN ART CURATOR-C Work Phone: [facility] 04-10-2025 14:01-0400 Respiratory rate 16 /min Renee Avila ASIAN ART CURATOR-C Work Phone: [facility] 04-10-2025 14:01-0400 SaO2% (BldA) [Mass fraction] 97 % Renee Avila ASIAN ART CURATOR-C Work Phone: [facility] 04-10-2025 14:01-0400 Systolic blood pressure 147 mm[Hg] Renee Avila ASIAN ART CURATOR-C Work Phone: [facility] 03-13-2025 06:58-0400 Body height 149.86 cm Renee Avila ASIAN ART CURATOR-C Work Phone: [facility] 03-13-2025 06:58-0400 Body weight 61.68 kg Renee Avila ASIAN ART CURATOR-C Work Phone: [facility] 03-12-2025 08:30-0400 Body mass index (BMI) [Ratio] 27.4 kg/m2 Renee Avila ASIAN ART CURATOR-C Work Phone: [facility] 02-07-2025 10:28-0400 Body temperature 98.2 [degF] Renee Avila ASIAN ART CURATOR-C Work Phone: [facility] 02-07-2025 10:28-0400 Body weight 61.68 kg Renee Avila ASIAN ART CURATOR-C Work Phone: [facility] 02-07-2025 10:28-0400 Diastolic blood pressure 87 mm[Hg] Renee Avila ASIAN ART CURATOR-C Work Phone: [facility] 02-07-2025 10:28-0400 Heart rate 64 /min Renee Avila ASIAN ART CURATOR-C Work Phone: [facility] 02-07-2025 10:28-0400 Respiratory rate 16 /min Renee Avila ASIAN ART CURATOR-C Work Phone: [facility] 02-07-2025 10:28-0400 SaO2% (BldA) [Mass fraction] 99 % Renee Avila ASIAN ART CURATOR-C Work Phone: [facility] 02-07-2025 10:28-0400 Systolic blood pressure 139 mm[Hg] Renee Avila ASIAN ART CURATOR-C Work Phone: [facility] 12-26-2024 10:14-0500 Body temperature 98.2 [degF] Renee Avila ASIAN ART CURATOR-C Work Phone: [facility] 12-26-2024 10:14-0500 Body weight 62.14 kg Renee Avila ASIAN ART CURATOR-C Work Phone: [facility] 12-26-2024 10:14-0500 Diastolic blood pressure 85 mm[Hg] Renee Avila ASIAN ART CURATOR-C Work Phone: [facility] 12-26-2024 10:14-0500 Heart rate 68 /min Renee Avila ASIAN ART CURATOR-C Work Phone: [facility] 12-26-2024 10:14-0500 Respiratory rate 16 /min Renee Avila ASIAN ART CURATOR-C Work Phone: [facility] 12-26-2024 10:14-0500 SaO2% (BldA) [Mass fraction] 99 % Renee Avila ASIAN ART CURATOR-C Work Phone: [facility] 12-26-2024 10:14-0500 Systolic blood pressure 146 mm[Hg] Reneeute Avila ASIAN ART CURATOR-C Work Phone: [facility] 05-09-2024 09:17-0400 Diastolic Blood Pressure Non-Invasive 74 mm[Hg] KEYANNA CARMENZA DO [facility] 05-09-2024 09:17-0400 Heart rate 67 /min KEYANNA CARMENZA DO [facility] 05-09-2024 09:17-0400 Respiratory rate 19 /min KEYANNA CARMENZA DO [facility] 05-09-2024 09:17-0400 Systolic Blood Pressure Non-Invasive 109 mm[Hg] KEYANNA CARMENZA DO [facility] 05-09-2024 09:07-0400 Heart rate 84 /min KEYANNA CARMENZA DO [facility] 05-09-2024 09:07-0400 Respiratory rate 22 /min KEYANNA CARMENZA DO [facility] 05-09-2024 08:59-0400 Diastolic Blood Pressure Non-Invasive 65 mm[Hg] KEYANNA CARMENZA DO [facility] 05-09-2024 08:59-0400 Heart rate 79 /min KEYANNA CARMENZA DO [facility] 05-09-2024 08:59-0400 Respiratory rate 20 /min KEYANNA CARMENZA DO [facility] 05-09-2024 08:59-0400 Systolic Blood Pressure Non-Invasive 98 mm[Hg] KEYANNA CARMENZA DO [facility] 05-09-2024 08:55-0400 Body temperature 97.88 [degF] KEYANNA CARMENZA DO [facility] 05-09-2024 08:55-0400 Diastolic Blood Pressure Non-Invasive 66 mm[Hg] KEYANNA CARMENZA DO [facility] 05-09-2024 08:55-0400 Systolic Blood Pressure Non-Invasive 99 mm[Hg] KEYANNA CARMENZA DO [facility] 05-09-2024 08:50-0400 Respiratory Rate - Anes 14 br/min KEYANNA CARMENZA DO [facility] 05-09-2024 08:45-0400 Respiratory Rate - Anes 16 br/min KEYANNA CARMENZA DO [facility] 05-09-2024 08:40-0400 Respiratory Rate - Anes 12 br/min KEYANNA CARMENZA DO [facility] 05-09-2024 08:23-0400 Body height 172.72 cm KEYANNA CARMENZA DO [facility] 05-09-2024 08:23-0400 Body temperature 98.6 [degF] KEYANNA CARMENZA DO [facility] 05-09-2024 08:23-0400 Body weight 61.36 kg KEYANNA CARMENZA DO [facility] 05-09-2024 08:23-0400 Heart rate 71 /min KEYANNA HERR DO [facility] Encounters Encounter Date Encounter Type Care Provider Facility Start: 05-13-2025 ambulatory Roly Flores Facility:[facility] Start: 05-09-2025 ambulatory [facility] Start: 05-09-2025 End: 05-09-2025 Admission to same day surgery center Dr. Roly Flores MD -Adjunct Spanish Instructor/Special Procedures Work Phone: Start: 05-09-2025 End: 05-09-2025 ambulatory Renee Avila ASIAN ART CURATOR-C Work Phone: -Adjunct Spanish Instructor/Special Procedures Start: 05-02-2025 ambulatory Roly Flores Facility:[facility] Start: 05-02-2025 Non-patient / Non-visit Dr. Roly sharp MD -[facility] Start: 05-02-2025 End: 05-02-2025 Admission to same day surgery center Dr. Roly Flores MD -Adjunct Spanish Instructor/Special Procedures Work Phone: Start: 05-02-2025 End: 05-02-2025 ambulatory Renee Avila ASIAN ART CURATOR-C Work Phone: -Adjunct Spanish Instructor/Special Procedures Start: 04-10-2025 End: 04-10-2025 Patient encounter procedure Faiza LEACH -[facility] Work Phone: Start: 04-10-2025 End: 04-10-2025 ambulatory Renee Avila ASIAN ART CURATOR-C Work Phone: [facility] Work Phone: Start: 04-06-2025 End: 04-06-2025 ambulatory RENEE AVILA NEUROLOGY STROKE PHYSICIAN-DUTY OFFICER Facility:[facility] Start: 04-06-2025 End: 04-06-2025 Patient encounter procedure RENEE AVILA NEUROLOGY STROKE PHYSICIAN-DUTY OFFICER [facility] Start: 03-13-2025 ambulatory Roly Esquiveley Facility:[facility] Start: 03-13-2025 Non-patient / Non-visit Dr. Roly sharp MD -[facility] Start: 03-13-2025 End: 03-13-2025 Admission to same day surgery center Dr. Roly Flores MD -Adjunct Spanish Instructor/Special Procedures Work Phone: Start: 03-13-2025 End: 03-13-2025 ambulatory Renee Avila ASIAN ART CURATOR-C Work Phone: [facility] Work Phone: Start: 02-07-2025 End: 02-07-2025 Patient encounter procedure Faiza LEACH -[facility] Work Phone: Start: 02-07-2025 End: 02-07-2025 ambulatory Renee Avila ASIAN ART CURATOR Facility:[facility] Start: 01-18-2025 Non-patient / Non-visit Dr. Roly sharp MD -[facility] Start: 01-18-2025 End: 01-18-2025 ambulatory Renee Avila ASIAN ART CURATOR-C Work Phone: [facility] Work Phone: Start: 01-18-2025 End: 01-18-2025 Patient encounter procedure Faiza LEACH -[facility] Work Phone: Start: 01-18-2025 End: 01-18-2025 ambulatory Renee Avila ASIAN ART CURATOR Facility:[facility] Start: 12-26-2024 End: 12-26-2024 Patient encounter procedure Faiza Mcwilliams [facility] Work Phone: Start: 12-26-2024 End: 12-26-2024 ambulatory Balbina Elder Facility:[facility] Start: 12-20-2024 End: 12-24-2024 ambulatory RENEE AVILA NEUROLOGY STROKE PHYSICIAN-DUTY OFFICER Facility:[facility] Start: 12-20-2024 End: 12-24-2024 Encounter for gynecological examination (general) (routine) without abnormal findings PHOEBE KELLEY MD Facility:[facility] Start: 12-20-2024 End: 12-24-2024 Outreach Lab PHOEBE KELLEY MD [facility] Start: 05-28-2024 End: 06-01-2024 ambulatory PHOEBE KELLEY MD Facility:B Start: 05-28-2024 End: 06-01-2024 Outreach Lab PHOEBE KELLEY MD [facility] Start: 05-09-2024 End: 05-09-2024 ambulatory KEYANNA HERR Facility:B Start: 05-09-2024 End: 05-09-2024 Minor Procedure KEYANNA HERR DO [facility] Start: 04-18-2024 End: 04-18-2024 ambulatory RENEE AVILA APRN-DUTY OFFICER Facility:B Start: 04-18-2024 End: 04-18-2024 Patient encounter procedure RENEE AVILA APRN-DUTY OFFICER [facility] Start: 04-05-2024 End: 04-09-2024 ambulatory RENEE AVILA NEUROLOGY STROKE PHYSICIAN-DUTY OFFICER Facility:B Start: 04-05-2024 End: 04-09-2024 Encounter for gynecological examination (general) (routine) without abnormal findings RENEE AVILA APRN-DUTY OFFICER Facility:B Start: 04-05-2024 End: 04-09-2024 Outreach Lab RENEE AVILA APRN-DUTY OFFICER [facility] Start: 04-03-2024 End: 04-03-2024 ambulatory RENEE AVILA NEUROLOGY STROKE PHYSICIAN-DUTY OFFICER Facility:B Procedures Date Procedure Procedure Detail Performing Clinician Tooth extraction KEYANNA De Guzman O Plan of Treatment Date Care Activity Detail Author Start: 05-09-2025 Patient discharge [facility] Start: 05-02-2025 Patient discharge [facility] Start: 03-13-2025 Endoven ablti ther c hem adhesive 1st vein ENDOVEN THER CHEM ADHES 1ST [facility] Start: 03-13-2025 Patient discharge [facility] Patient referral [facility] Work Phone: US.doppler Lower extremity vein [facility] Payers Date Payer Category Payer Private Health Insurance [id number] 2024 Unknown [id number] 2024 Unknown [id number] 2024 Self-pay 2024 Unknown [id number] 1965 Unknown [id number] 2.16.8 [id number] 1964 Unknown [id number] 2.16.8 [id number] 1964 Unknown [id number] 2.16.8 40.1.414711.3.579.2.627 1964 Unknown [id number] 2.16.8 40.1.672642.3.579.2.627 1964 Unknown [id number] 2.16.8 40.1.491236.3.579.2.627 1964 Unknown [id number] 2.16. 840.1.698862.3.579.2.627 1964 Unknown [id number] 2.16.8 40.1.072719.3.579.2.627 Unknown [id number] 2.16.8 40.1.795938.3.579.2.462 Unknown [id number] 2.16.8 40.1.956976.3.579.2.462 Unknown [id number] 2.16.8 40.1.329627.3.579.2.462 Unknown [id number] 2.16.8 40.1.932555.3.579.2.462 Unknown [id number] 2.16.8 40.1.881334.3.579.2.462 Unknown [id number] 2.16.8 40.1.886951.3.579.2.462 Unknown [id number] 2.16.8 40.1.014918.3.579.2.462 Unknown [id number] 2.16.8 40.1.593485.3.579.2.462 Unknown [id number] 2.16.8 40.1.750561.3.579.2.462 Unknown [id number] 2.16.8 40.1.140628.3.579.2.462 Unknown [id number] 2.16.8 40.1.340422.3.579.2.462 Unknown [id number] 2.16.8 40.1.817220.3.579.2.462 Unknown [id number] 2.16.8 40.1.913810.3.579.2.462 Social History Date Type Detail Facility Start: 03-08-2024 End: 05-09-2025 Tobacco smoking status Never smoked tobacco (finding) [facility] Start: 1965 Sex Assigned At Female A [facility] Sexual Orientation [facility] Start: 04-18-2019 End: 01-22-2025 Sex Female (finding) [facility] Gender Identity Identifies as fe male gender (finding) [facility] Functional Status Date Assessment Result Facility 05-09-2024 Functional Status Maintained [facility] Mental Status Date Assessment Result Facility 05-09-2024 Mental Status Oriented x 4 [facility] Clinical Notes 04-05-2024 to 05-02-2025 Note Date & Type Note Facility 05-02-2025 Procedure note [facility] 03-13-2025 History and physical note Note Date/Time March 13, 2025 7:56am [facility] Medical Records Department [address] [place] [address] History & Physical Exam 03/13/25 0753 MR#: [id number] Acct: [id number] Name: TAYLOR RUEDA Rep #:[id number] : 1965 59 From: Roly Flores MD PCP: Renee Avila NP-C Status:REG SD C Location: [facility] HPI - General HPI Narrative TAYLOR RUEDA, is a 59 F who presents with persistent venous stasis dermatitis in the R medial lower leg; has had venous ulceration in this location prior as well. Her dermatitis symptoms improve with topical steroid application, but quickly recur when she discontinues steroid. This has been persistent despite her adherence to conservative management measures including compression, leg elevation, and avoidance of prolonged idle sitting/standing. [facility] Medical History Wears glasses Home Medications ?Medication ?Instructions ?Recorded ?Last Taken ?Type conjugated estrogens 0.3 mg tablet 0.3 mg PO QDAY 03/17 Unknown History (Premarin) triamcinolone acetonide 0.025 % 1 applic topical QDAY PRN rash 12/26/24 Unknown History topical cream Allergy/AdvReac Type Severity Reaction Status Date / Time No Known Allergies Allergy Verified 02/07/25 10:29 Family History Other CVA (cerebral vascular accident) Cancer Heart disease Hypertension Myocardial infarction Social History Smoking Status: Never smoker ROS Constitutional Constitutional: Denies chills, fever(s), frequent falls, lethargy or weakness Eyes Eyes: Denies blind spots, change in vision or loss of vision ENT HEENT: Denies bleeding gums, hoarseness or sore throat Cardiovascular Cardiovascular: Denies abdominal pain, bluish discoloration of hand/feet, chest pain with activity, claudication, cold extremities, cyanosis, dyspnea on exertion, erythema on extremities, irregular heart rhythm, leg edema, leg ulcers, numbness in extremities or weakness in extremities Respiratory/Chest Respiratory/Chest: Denies cough, excessive phlegm production, shortness of breath at rest, shortness of breath with exertion or wheezing Gastrointestinal Gastrointestinal: Denies anorexia, change in stool character, constipation, diarrhea, melena or rectal bleeding Genitourinary Genitourinary: Denies dysuria or hematuria Musculoskeletal Musculoskeletal: Denies abnormal gait Integumentary Integumentary: Reports other Details: ; Denies erythema, non-healing lesions or wounds Neurologic Neurologic: Denies abnormal speech, focal weakness, headache(s), loss of vision,numbness, paresthesias or sensory deficit Hematologic/Lymphatic Hematologic/Lymphatic: Denies easy bleeding, easy bruising or lymphadenopathy Vital Signs Vital Signs Vital Signs: Weight Weight: 136 lb Body Mass Index (BMI) 27.4 Physical Exam Const alert, oriented x3, no apparent distress and healthy appearing General Appearance: cooperative; Negative for combative or lethargic Orientation / Consciousness: awake Exam Limitations: no limitations HEENT Head and Scalp: normocephalic and atraumatic Eyes EOMs intact bilaterally General Eye: normal appearance of both eyes Neck full ROM General: trachea midline Resp normal respiratory effort and no use of accessory muscles Effort and Inspection: Negative for labored, stridor or audible wheezes Cardio regular rate and regular rhythm Back/Spine Cervical Spine: cervical ROM normal Neuro oriented x3, CN's II-XII intact bilaterally, no focal motor deficits and no sensory deficits noted Psych thought process normal, cooperative, affect normal, speech normal and activity/motor behavior normal Assessment & Plan Assessment/Plan (1) Venous stasis ulcer limited to breakdown of skin with varicose veins: QUALIFIERS: Venous stasis ulcer site: ankle Laterality: right Qualified Code(s): I83.013 - 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 Roly Flores MD~ Signed [facility] Work Phone: 1(409) 787-139205-21-2025 History and physical note [facility] Medical Records Department [address] [place] [address] History & Physical Exam 03/13/25 075 MR#: [id number] Acct: [id number] Name: TAYLOR RUEDA Rep #:[id number] : 1965 59 From: Roly Flores MD PCP: Renee Avila NP-C Status:REG SD C Location: [facility] HPI - General HPI Narrative TAYLOR RUEDA, is a 59 F who presents with persistent venous stasis dermatitis in the R medial lower leg; has had venous ulceration in this location prior as well. Her dermatitis symptoms improve with topical steroid application, but quickly recur when she discontinues steroid. This has been persistent despite her adherence to conservative management measures including compression, leg elevation, and avoidance of prolonged idle sitting/standing. [facility] Medical History Wears glasses Home Medications ?Medication ?Instructions ?Recorded ?Last Taken ?Type conjugated estrogens 0.3 mg tablet 0.3 mg PO QDAY 03/17 Unknown History (Premarin) triamcinolone acetonide 0.025 % 1 applic topical QDAY PRN rash 12/26/24 Unknown History topical cream Allergy/AdvReac Type Severity Reaction Status Date / Time No Known Allergies Allergy Verified 02/07/25 10:29 Family History Other CVA (cerebral vascular accident) Cancer Heart disease Hypertension Myocardial infarction Social History Smoking Status: Never smoker ROS Constitutional Constitutional: Denies chills, fever(s), frequent falls, lethargy or weakness Eyes Eyes: Denies blind spots, change in vision or loss of vision ENT HEENT: Denies bleeding gums, hoarseness or sore throat Cardiovascular Cardiovascular: Denies abdominal pain, bluish discoloration of hand/feet, chest pain with activity,claudication, cold extremities, cyanosis, dyspnea on exertion, erythema on extremities, irregular heart rhythm, leg edema, leg ulcers, numbness in extremities or weakness in extremities Respiratory/Chest Respiratory/Chest: Denies cough, excessive phlegm production, shortness of breath at rest, shortness of breath with exertion or wheezing Gastrointestinal Gastrointestinal: Denies anorexia, change in stool character, constipation, diarrhea, melena or rectal bleeding Genitourinary Genitourinary: Denies dysuria or hematuria Musculoskeletal Musculoskeletal: Denies abnormal gait Integumentary Integumentary: Reports other Details: ; Denies erythema, non-healing lesions or wounds Neurologic Neurologic: Denies abnormal speech, focal weakness, headache(s), loss of vision,numbness, paresthesias or sensory deficit Hematologic/Lymphatic Hematologic/Lymphatic: Denies easy bleeding, easy bruising or lymphadenopathy Vital Signs Vital Signs Vital Signs: Weight Weight: 136 lb Body Mass Index (BMI) 27.4 Physical Exam Const alert, oriented x3, no apparent distress and healthy appearing General Appearance: cooperative; Negative for combative or lethargic Orientation / Consciousness: awake Exam Limitations: no limitations HEENT Head and Scalp: normocephalic and atraumatic Eyes EOMs intact bilaterally General Eye: normal appearance of both eyes Neck full ROM General: trachea midline Resp normal respiratory effort and no use of accessory muscles Effort and Inspection: Negative for labored, stridor or audible wheezes Cardio regular rate and regular rhythm Back/Spine Cervical Spine: cervical ROM normal Neuro oriented x3, CN's II-XII intact bilaterally, no focal motor deficits and no sensory deficits noted Psych thought process normal, cooperative, affect normal, speech normal and activity/motor behavior normal Assessment & Plan Assessment/Plan (1) Venous stasis ulcer limited to breakdown of skin with varicose veins: QUALIFIERS: Venous stasis ulcer site: ankle Laterality: right Qualified Code(s): I83.013 - Varicoseveins of right lower extremity with ulcer of ankle; L97.311 - 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 Roly Flores MD~ Signed [facility]05-21-2025 [facility] Medical Records Department [address] [place] [address] History Physical Exam 03/13/25 0753 MR#: [id number] Acct: [id number] Name: TAYLOR RUEDA Rep #: [id number] : 1965 59 From: Roly Flores MD PCP: NAVID Lopez [place] [facility] [facility] HPI - General HPI Narrative TAYLOR RUEDA, is a 59 F who presents with persistent venous stasis dermatitis in the R medial lower leg; has had venous ulceration in this location prior as well. Her dermatitis symptoms improve with topical steroid application, but quickly recur when she discontinues steroid. This has been persistent despite her adherence to conservative management measures including compression, leg elevation, and avoidance of prolonged idle sitting/standing. [facility] Medical History Wears glasses Home Medications ???Medication ???Instructions ???Recorded ???Last Taken ???Type conjugated estrogens 0.3 mg tablet 0.3 mg PO QDAY 12/26/24 Unknown History (Premarin) triamcinolone acetonide 0.025 % 1 applic topical QDAY PRN rash 03/17 Unknown History topical cream Allergy/AdvReac Type Severity Reaction Status Date / Time No Known Allergies Allergy Verified 02/07/25 10:29 Family History Other CVA (cerebral vascular accident) Cancer Heart disease Hypertension Myocardial infarction Social History Smoking Status: Never smoker ROS Constitutional Constitutional: Denies chills, fever(s), frequent falls, lethargy or weakness Eyes Eyes: Denies blind spots, change in vision or loss of vision ENT HEENT: Denies bleeding gums, hoarseness or sore throat Cardiovascular Cardiovascular: Denies abdominal pain, bluish discoloration of hand/feet, chest pain with activity, claudication, cold extremities, cyanosis, dyspnea on exertion, erythema on extremities, irregular heart rhythm, leg edema, leg ulcers, numbness in extremities or weakness in extremities Respiratory/Chest Respiratory/Chest: Denies cough, excessive phlegm production, shortness of breath at rest, shortness of breath with exertion or wheezing Gastrointestinal Gastrointestinal: Denies anorexia, change in stool character, constipation, diarrhea, melena or rectal bleeding Genitourinary Genitourinary: Denies dysuria or hematuria Musculoskeletal Musculoskeletal: Denies abnormal gait Integumentary Integumentary: Reports other Details: ; Denies erythema, non-healing lesions or wounds Neurologic Neurologic: Denies abnormal speech, focal weakness, headache(s), loss of vision, numbness, paresthesias or sensory deficit Hematologic/Lymphatic Hematologic/Lymphatic: Denies easy bleeding, easy bruising or lymphadenopathy Vital Signs Vital Signs Vital Signs: Weight Weight: 136 lb Body Mass Index (BMI) 27.4 Physical Exam Const alert, oriented x3, no apparent distress and healthy appearing General Appearance: cooperative; Negative for combative or lethargic Orientation / Consciousness: awake Exam Limitations: no limitations HEENT Head and Scalp: normocephalic and atraumatic Eyes EOMs intact bilaterally General Eye: normal appearance of both eyes Neck full ROM General: trachea midline Resp normal respiratory effort and no use of accessory muscles Effort and Inspection: Negative for labored, stridor or audible wheezes Cardio regular rate and regular rhythm Back/Spine Cervical Spine: cervical ROM normal Neuro oriented x3, CN's II-XII intact bilaterally, no focal motor deficits and no sensory deficits noted Psych thought process normal, cooperative, affect normal, speech normal and activity/motor behavior normal Assessment Plan Assessment/Plan (1) Venous stasis ulcer limited to breakdown of skin with varicose veins: QUALIFIERS: Venous stasis ulcer site: ankle Laterality: right Qualified Code(s): I83.013 - 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 Roly [facility]* Diagnosis Onset Date Resolution Status Admit Date Acute venous stasis dermatit is of right lower extremity acute January 222024 10:18am Symptomatic varicose veins o f right lower extremity acute January 10:18am Venous stasis ulcer limited to breakdown of skin with varicose veins acute February 07, 2025 10:18am Venous stasis ulcer limited to breakdown of skin with varicose veins acute March 13, 2025 6 :42am Acute venous stasis dermatit is of right lower extremity acute April 102024 1:51pm Symptomatic varicose veins o f right lower extremity acute April 10, 2025 1:51pm Venous stasis ulcer limited to breakdown of skin with varicose veins acute April 10, 2025 1:51pm [facility] Work Phone: 1(394) 766-489003-05-2025 Evaluation note* Diagnosis Onset Date Resolution Status Admit Date Acute venous stasis dermatit is of right lower extremity acute December 26, 2024 9:48am Symptomatic varicose veins o f right lower extremity acute December 26, 2024 9:48am Venous stasis ulcer limited to breakdown of skin with varicose veins acute December 26, 2024 9:48am [facility] Work Phone: 1(291) 414-445803-05-2025 Evaluation note* Diagnosis Onset Date Resolution Status Admit Date Acute venous stasis dermatit is of right lower extremity acute December 262024 9:48am Symptomatic varicose veins o f right lower extremity acute December 26, 2024 9:48am Venous stasis ulcer limited to breakdown of skin with varicose veins acute December 26, 2024 9:48am Acute venous stasis dermatit is of right lower extremity acute January 222024 10:18am Symptomatic varicose veins o f right lower extremity acute January 10:18am Venous stasis ulcer limited to breakdown of skin with varicose veins acute February 07, 2025 10:18am Venous stasis ulcer limited to breakdown of skin with varicose veins acute March 13, 2025 6 :42am [facility] Work Phone: 1(646) 641-168208-07-2024 Note [facility] 08-06-2024 Note [facility] 08-06-2024 Note [facility] 08-06-2024 Note [facility] 08-06-2024 Note [facility] 08-06-2024 Note [facility] 08-06-2024 Note [facility] 07-17-2024 Evaluation + Plan noteExtracted from: Title:Clinical Document Author:KEYANNA HERR DO D ate:05/09/24 [place] ADMISSION HISTORY AN D PHYSICIAL CHIEF COMPLAINT: Colorectal cancer screening HISTORY OF PRESENT ILLNESS: Colorectal cancer screening REVIEW OF SYSTEMS: Constitutional: denies weight loss Cardiovascular:denies chest pain, palpitations Respiratory:denies shortness of breath Gastrointestinal:no abd pain Musculoskeletal: no arthralgias Skin: no rashes ACTIVE PROBLEMS: No qualifying data available for Problems MEDICATIONS: Active Inpt Meds: None Active PRN Meds: None One Time Meds: None Active IV Meds: None ALLERGIES: (1) NKA FAMILY HISTORY: SOCIAL HISTORY: PHYSICAL EXAM: VITALS: No Data Available 24 Hr Tmax: No Data Available 36 Hr Tmax: No Data Available Vital Signs are the last 5 in the past 48 hours. Weights display the last 5 within 7 days. Initial Wt: No Data Available Current Wt: No Data Available physical exam alert and oriented cardio; regular without murmur pulm; clear abd; soft, nontender LABS: No 36hr Lab Data DIAGNOSTICS: IMPRESSION: Colorectal cancer screening PLAN: Proceed with colonoscopy as discussed in the office [facility] 07-17-2024 Hospital Discharge instructions Patient Education 05/09/2024 09:02:03 Monitored Anesthesia Care, Care After Monitored Anesthesia Care, Care After These instructions provide you with information about caring for yourself after your procedure. Your health care provider may also give you more specific instructions. Your treatment has been plannedaccording to current medical practices, but problems sometimes occur. Call your health care provider if you have any problems or questions after your procedure. What can I expect after the procedure? After your procedure, you may: Feel sleepy for several hours. Feel clumsy and have poor balance for several hours. Feel forgetful about what happened after the procedure. Have poor judgment for several hours. Feel nauseous or vomit. Have a sore throat if you had a breathing tube during the procedure. Follow these instructions at home: For at least 24 hours after the procedure: Have a responsible adult stay with you. It is important to have someone help care for you until youare awake and alert. Rest as needed. Do not: ?Participate in activities in which you could fall or become injured. ?Drive. ?Use heavy machinery. ?Drink alcohol. ?Take sleeping pills or medicines that cause drowsiness. ?Make important decisions or sign legal documents. ?Take care of children on your own. Eating and drinking Follow the diet that is recommended by your health care provider. If you vomit, drink water, juice, or soup when you can drink without vomiting. Make sure you have little or no nausea before eating solid foods. General instructions Take qykk-wsz-xqqhnsv and prescription medicines only as told by your health care provider. If you have sleep apnea, surgery and certain medicines can increase your risk for breathing problems. Follow instructions from your health care provider about wearing your sleep device: ?Anytime you are sleeping, including during daytime naps. ?While taking prescription pain medicines, sleeping medicines, or medicines that make you drowsy. If you smoke, do not smoke without supervision. Keep all follow-up visits as told by your health care provider. This is important. Contact a health care provider if: You keep feeling nauseous or you keep vomiting. You feel light-headed. You develop a rash. You have a fever. Get help right away if: You have trouble breathing. Summary For several hours after your procedure, you may feel sleepy and have poor judgment. Have a responsible adult stay with you for at least 24 hours or until you are awake and alert. This information is not intended to replace advice given to you by your health care provider. Make sure you discuss any questions you have with your health care provider. Document Released: 01/30/2017 Document Revised: 01/08/2019 Document Reviewed: 01/30/2017 [employer] Patient Education 2020 [employer]. 05/09/2024 09:01:57 Colonoscopy, Adult, Care After, [id number] Colonoscopy, Adult, Care After This sheet gives you information about how to care for yourself after your procedure. Your doctor may also give you more specific instructions. If you have problems or questions, call your doctor. What can I expect after the procedure? After the procedure, it is common to have: A small amount of blood in your poop for 24 hours. Some gas. Mild cramping or bloating in your belly. Follow these instructions at home: General instructions For the first 24 hours after the procedure: ?Do not drive or use machinery. ?Do not sign important documents. ?Do not drink alcohol. ?Do your daily activities more slowly than normal. ?Eat foods that are soft and easy to digest. Take xbez-uph-jbqzpxh or prescription medicines only as told by your doctor. To help cramping and bloating: Try walking around. Put heat on your belly (abdomen) as told by your doctor. Use a heat source that your doctor recommends, such as a moist heat pack or a heating pad. ?Put a towel between your skin and the heat source. ?Leave the heat on for 20 30 minutes. ?Remove the heat if your skin turns bright red. This is especially important if you cannot feel pain, heat, or cold. You can get burned. Eating and drinking Drink enough fluid to keep your pee (urine) clear or pale yellow. Return to your normal diet as told by your doctor. Avoid heavy or fried foods that are hard to digest. Avoid drinking alcohol for as long as told by your doctor. Contact a doctor if: You have blood in your poop (stool) 2 3 days after the procedure. Get help right away if: You have more than a small amount of blood in your poop. You see large clumps of tissue (blood clots) in your poop. Your belly is swollen. You feel sick to your stomach (nauseous). You throw up (vomit). You have a fever. You have belly pain that gets worse, and medicine does not help your pain. Summary After the procedure, it is common to have a small amount of blood in your poop. You may also have mild cramping and bloating in your belly. For the first 24 hours after the procedure, do not drive or use machinery, do not sign important documents, and do not drink alcohol. Get help right away if you have a lot of blood in your poop, feel sick to your stomach, have a fever, or have more belly pain. This information is not intended to replace advice given to you by your health care provider. Make sure you discuss any questions you have with your health care provider. Document Released: 11/12/2011 Document Revised: 08/10/2018 Document Reviewed: 07/04/2017 [employer] Patient Education 2020 [employer] 05/09/2024 09:01:51 Colon Polyps Colon Polyps Polyps are tissue growths inside the body. Polyps can grow in many places, including the large intestine (colon). A polyp may be a round bump or a mushroom-shaped growth. You could have one polyp or several. Most colon polyps are noncancerous (benign). However, some colon polyps can become cancerous over time. Finding and removing the polyps early can help prevent this. What are the causes? The exact cause of colon polyps is not known. What increases the risk? You are more likely to develop this condition if you: Have a family history of colon cancer or colon polyps. Are older than 50 or older than 45 if you are . Have inflammatory bowel disease, such as ulcerative colitis or Crohn's disease. Have certain hereditary conditions, such as: ?Familial adenomatous polyposis. ?Donnelly syndrome. ?Turcot syndrome. ?Peutz Jeghers syndrome. Are overweight. Smoke cigarettes. Do not get enough exercise. Drink too much alcohol. Eat a diet that is high in fat and red meat and low in fiber. Had childhood cancer that was treated with abdominal radiation. What are the signs or symptoms? Most polyps do not cause symptoms. If you have symptoms, they may include: Blood coming from your rectum when having a bowel movement. Blood in your stool. The stool may look dark red or black. Abdominal pain. A change in bowel habits, such as constipation or diarrhea. How is this diagnosed? This condition is diagnosed with a colonoscopy. This is a procedure in which a lighted, flexible scope is inserted into the anus and then passed into the colon to examine the area. Polyps are sometimes found when a colonoscopy is done as part of routine cancer screening tests. How is this treated? Treatment for this condition involves removing any polyps that are found. Most polyps can be removed during a colonoscopy. Those polyps will then be tested for cancer. Additional treatment may be needed depending on the results of testing. Follow these instructions at home: Lifestyle Maintain a healthy weight, or lose weight if recommended by your health care provider. Exercise every day or as told by your health care provider. Do not use any products that contain nicotine or tobacco, such as cigarettes and e-cigarettes. If you need help quitting, ask your health care provider. If you drink alcohol, limit how much you have: ?0 1 drink a day for women. ? 0 2 drinks a day for men. Be aware of how much alcohol is in your drink. In the [place] one drink equals one 12 oz bottle of beer (355 mL), one 5 oz glass of wine (148 mL), or one 1 oz shot of hard liquor (44 mL). Eating and drinking Eat foods that are high in fiber, such as fruits, vegetables, and whole grains. Eat foods that are high in calcium and vitamin D, such as milk, cheese, yogurt, eggs, liver, fish, and broccoli. Limit foods that are high in fat, such as fried foods and desserts. Limit the amount of red meat and processed meat you eat, such as hot dogs, sausage, rodas, and lunch meats. General instructions Keep all follow-up visits as told by your health care provider. This is important. ?This includes having regularly scheduled colonoscopies. ?Talk to your health care provider about when you need a colonoscopy. Contact a health care provider if: You have new or worsening bleeding during a bowel movement. You have new or increased blood in your stool. You have a change in bowel habits. You lose weight for no known reason. Summary Polyps are tissue growths inside the body. Polyps can grow in many places, including the colon. Most colon polyps are noncancerous (benign), but some can become cancerous over time. This condition is diagnosed with a colonoscopy. Treatment for this condition involves removing any polyps that are found. Most polyps can be removed during a colonoscopy. This information is not intended to replace advice given to you by your health care provider. Make sure you discuss any questions you have with your health care provider. Document Released: 07/06/2005 Document Revised: 01/25/2019 Document Reviewed: 01/25/2019 [employer] Patient Education 2020 [employer]. Follow Up Care 04/25/2024 15:00:28 With:KEYANNA HERR DO, Clinical Gastroenterology Address: [address] [place] [address] [place] [address]- [phone] When: Unknown Comments:ONE POLYP WAS FOUND, REMOVED AND SENT TO THE LAB FOR EVALUATION. CALL DR HERR OR OR FAMILY PHYSICIAN WITH ANY QUESTIONS OR CONCERNS. GO TO THE EMERGENCY ROOM WITH ANY URGENT CONCERNS. With:REENE AVILA APRN-[facility] Address: [address] [place] [phone] When: Unknown [facility] 07-17-2024 Note Discharge Instructions Thank you for allowing [facility] to assist you with your healthcare needs. The following is importantdischarge information regarding your hospital visit. Your Care Team RENEE AVILA DR. Your Diagnosis COLONOSCOPY WITH POLYPECTOMY What to do next Instructions From Your Doctor Screening colonoscopy 7 years Follow Up Appointments Follow Up with KEYANNA HERR DO, Clinical Gastroenterology Where:[address] [facility] Gastroenterology [place], [place] [id number] [phone] Additional Information: ONE POLYP WAS FOUND, REMOVED AND SENT TO THE LAB FOR EVALUATION. CALL DR HERR OR OR FAMILY PHYSICIAN WITH ANY QUESTIONS OR CONCERNS. GO TO THE EMERGENCY ROOM WITH ANY URGENT CONCERNS. Follow Up with RENEE AVILA Where:[address] [place] [address]- [phone] The Following Activity and Diet Have Been Ordered for You Discharge Activity - Ordered -- Driving Restricted, No driving until tomorrow, 05/09/24 8:21:00 EDT Discharge Return to Work, School, or Sports (Discharge "Return to" status) - Ordered -- May return to: work, 05/09/24 8:21:00 EDT Discharge Diet - Ordered -- Type of Diet: Regular Diet, 05/09/24 8:21:00 EDT Allergies NKA Medications Please ask your primary doctor or pharmacist before taking any other medication not listed, including over the counter drugs, herbal medications, vitamins and or supplements as they may interact withyour home medications. What How Much When Why Instructions Last Dose Unchanged conjugated estrogens topical (Premarin 0.625 mg/ g vaginal cream with applicator) See instructions Menopausal vaginal dryness 0.5 gram(s) Vaginal twice weekly Unchanged multivitamin (Multivitamin) 1 tab(s) by mouth Every day Unchanged polyethylene glycol 3350 with electrolytes (PEG-3350 with Electrolytes (Eqv-GoLYTELY) oral powder for reconstitution) See instructions Take as directed 1 day before colonoscopy. Follow instructions as provided by your GI provider at [facility]. Please take this list to your next doctor s visit. Bring all medications you take, including over the counter medications, herbals and other supplements with you to your doctor s visit. Patients and families are reminded to discard old lists and to update any records with all medication providers or retail pharmacies. Education Materials Monitored Anesthesia Care, Care After These instructions provide you with information about caring for yourself after your procedure. Your health care provider may also give you more specific instructions. Your treatment has been plannedaccording to current medical practices, but problems sometimes occur. Call your health care provider if you have any problems or questions after your procedure. What can I expect after the procedure? After your procedure, you may: Feel sleepy for several hours. Feel clumsy and have poor balance for several hours. Feel forgetful about what happened after the procedure. Have poor judgment for several hours. Feel nauseous or vomit. Have a sore throat if you had a breathing tube during the procedure. Follow these instructions at home: For at least 24 hours after the procedure: Have a responsible adult stay with you. It is important to have someone help care for you until youare awake and alert. Rest as needed. Do not: ? Participate in activities in which you could fall or become injured. ? Drive. ? Use heavy machinery. ? Drink alcohol. ? Take sleeping pills or medicines that cause drowsiness. ? Make important decisions or sign legal documents. ? Take care of children on your own. Eating and drinking Follow the diet that is recommended by your health care provider. If you vomit, drink water, juice, or soup when you can drink without vomiting. Make sure you have little or no nausea before eating solid foods. General instructions Take irjy-odt-fyraopp and prescription medicines only as told by your health care provider. If you have sleep apnea, surgery and certain medicines can increase your risk for breathing problems. Follow instructions from your health care provider about wearing your sleep device: ? Anytime you are sleeping, including during daytime naps. ? While taking prescription pain medicines, sleeping medicines, or medicines that make you drowsy. If you smoke, do not smoke without supervision. Keep all follow-up visits as told by your health care provider. This is important. Contact a health care provider if: You keep feeling nauseous or you keep vomiting. You feel light-headed. You develop a rash. You have a fever. Get help right away if: You have trouble breathing. Summary For several hours after your procedure, you may feel sleepy and have poor judgment. Have a responsible adult stay with you for at least 24 hours or until you are awake and alert. This information is not intended to replace advice given to you by your health care provider. Make sure you discuss any questions you have with your health care provider. Document Released: 01/30/2017 Document Revised: 01/08/2019 Document Reviewed: 01/30/2017 [employer] Patient Education 2020 [employer] Colonoscopy, Adult, Care After This sheet gives you information about how to care for yourself after your procedure. Your doctor may also give you more specific instructions. If you have problems or questions, call your doctor. What can I expect after the procedure? After the procedure, it is common to have: A small amount of blood in your poop for 24 hours. Some gas. Mild cramping or bloating in your belly. Follow these instructions at home: General instructions For the first 24 hours after the procedure: ? Do not drive or use machinery. ? Do not sign important documents. ? Do not drink alcohol. ? Do your daily activities more slowly than normal. ? Eat foods that are soft and easy to digest. Take iaya-ztj-cfnchds or prescription medicines only as told by your doctor. To help cramping and bloating: Try walking around. Put heat on your belly (abdomen) as told by your doctor. Use a heat source that your doctor recommends, such as a moist heat pack or a heating pad. ? Put a towel between your skin and the heat source. ? Leave the heat on for 20 30 minutes. ? Remove the heat if your skin turns bright red. This is especially important if you cannot feel pain, heat, or cold. You can get burned. Eating and drinking Drink enough fluid to keep your pee (urine) clear or pale yellow. Return to your normal diet as told by your doctor. Avoid heavy or fried foods that are hard to digest. Avoid drinking alcohol for as long as told by your doctor. Contact a doctor if: You have blood in your poop (stool) 2 3 days after the procedure. Get help right away if: You have more than a small amount of blood in your poop. You see large clumps of tissue (blood clots) in your poop. Your belly is swollen. You feel sick to your stomach (nauseous). You throw up (vomit). You have a fever. You have belly pain that gets worse, and medicine does not help your pain. Summary After the procedure, it is common to have a small amount of blood in your poop. You may also have mild cramping and bloating in your belly. For the first 24 hours after the procedure, do not drive or use machinery, do not sign important documents, and do not drink alcohol. Get help right away if you have a lot of blood in your poop, feel sick to your stomach, have a fever, or have more belly pain. This information is not intended to replace advice given to you by your health care provider. Make sure you discuss any questions you have with your health care provider. Document Released: 11/12/2011 Document Revised: 08/10/2018 Document Reviewed: 07/04/2017 [employer] Patient Education 2020 [employer]. Colon Polyps Polyps are tissue growths inside the body. Polyps can grow in many places, including the large intestine (colon). A polyp may be a round bump or a mushroom-shaped growth. You could have one polyp or several. Most colon polyps are noncancerous (benign). However, some colon polyps can become cancerous over time. Finding and removing the polyps early can help prevent this. What are the causes? The exact cause of colon polyps is not known. What increases the risk? You are more likely to develop this condition if you: Have a family history of colon cancer or colon polyps. Are older than 50 or older than 45 if you are . Have inflammatory bowel disease, such as ulcerative colitis or Crohn's disease. Have certain hereditary conditions, such as: ? Familial adenomatous polyposis. ? Donnelly syndrome. ? Turcot syndrome. ? Peutz Jeghers syndrome. Are overweight. Smoke cigarettes. Do not get enough exercise. Drink too much alcohol. Eat a diet that is high in fat and red meat and low in fiber. Had childhood cancer that was treated with abdominal radiation. What are the signs or symptoms? Most polyps do not cause symptoms. If you have symptoms, they may include: Blood coming from your rectum when having a bowel movement. Blood in your stool. The stool may look dark red or black. Abdominal pain. A change in bowel habits, such as constipation or diarrhea. How is this diagnosed? This condition is diagnosed with a colonoscopy. This is a procedure in which a lighted, flexible scope is inserted into the anus and then passed into the colon to examine the area. Polyps are sometimes found when a colonoscopy is done as part of routine cancer screening tests. How is this treated? Treatment for this condition involves removing any polyps that are found. Most polyps can be removed during a colonoscopy. Those polyps will then be tested for cancer. Additional treatment may be needed depending on the results of testing. Follow these instructions at home: Lifestyle Maintain a healthy weight, or lose weight if recommended by your health care provider. Exercise every day or as told by your health care provider. Do not use any products that contain nicotine or tobacco, such as cigarettes and e-cigarettes. If you need help quitting, ask your health care provider. If you drink alcohol, limit how much you have: ? 0 1 drink a day for women. ? 0 2 drinks a day for men. Be aware of how much alcohol is in your drink. In the [place] one drink equals one 12 oz bottle of beer (355 mL), one 5 oz glass of wine (148 mL), or one 1 oz shot of hard liquor (44 mL). Eating and drinking Eat foods that are high in fiber, such as fruits, vegetables, and whole grains. Eat foods that are high in calcium and vitamin D, such as milk, cheese, yogurt, eggs, liver, fish, and broccoli. Limit foods that are high in fat, such as fried foods and desserts. Limit the amount of red meat and processed meat you eat, such as hot dogs, sausage, rodas, and lunch meats. General instructions Keep all follow-up visits as told by your health care provider. This is important. ? This includes having regularly scheduled colonoscopies. ? Talk to your health care provider about when you need a colonoscopy. Contact a health care provider if: You have new or worsening bleeding during a bowel movement. You have new or increased blood in your stool. You have a change in bowel habits. You lose weight for no known reason. Summary Polyps are tissue growths inside the body. Polyps can grow in many places, including the colon. Most colon polyps are noncancerous (benign), but some can become cancerous over time. This condition is diagnosed with a colonoscopy. Treatment for this condition involves removing any polyps that are found. Most polyps can be removed during a colonoscopy. This information is not intended to replace advice given to you by your health care provider. Make sure you discuss any questions you have with your health care provider. Document Released: 07/06/2005 Document Revised: 01/25/2019 Document Reviewed: 01/25/2019 [employer] Patient Education 2020 [employer]. Additional Information VACCINATE! IT SAVES LIVES! Members of the community who have not yet received the COVID-19 vaccine and would like to receive it can visit one of [facility] vaccine clinics. There are many vaccine clinic locations within the [facility]. For locations and available times, please visit https://gettheshot.coronavirus.[place].gov/. It is important to note that some COVID mobile vaccine clinics are held outdoors and may be canceled in rainy or stormy conditions. To learn more about pediatric vaccinations (ages 5-11), we invite you to visit the [facility] webpage. https://www.akGoHomes.org/pages/6128-Lfcnv-Gzhwmzopzga-Owjvgwkzwb-Wcxgo-Soe stions.htmlTo learn more about the COVID-19 vaccine, we invite you to visit the CDC website for a list of frequently asked questions.https://www.cdc.gov/coronavirus/2019-ncov/vaccines/faq.html [employer] Patient Portal Access Instructions: Stay connected with your healthcare team and access your personal medical information anytime with the [employer] Patient Portal. Please follow the directions below to create your [employer] account: 1.Access the email account you provided upon registration to the hospital/physician office.2.Look for an invitation email from [facility].3.Open the email and access the invitation link: AcceptInvitation to [employer].4.Fill in the required lundy to create your account. To access your account, visit [email or web address]. Click the blue button labeled "Access Patient Portal" and then log in with the username and password that you created in the steps above. You will be able to view your test results, lab results, a summary of your visits, upcoming appointments and more. There is also a convenient messaging option where you can send secure messages to your p Easy Pairingsvider. In addition, you will have the ability to download any documents or summaries to your computer and/or send the information securely to a physician. Remember that your healthcare information is confidential, so carefully consider who you will allowto register on the [employer] Patient Portal for access to your information. You can also access the [employer] Patient Portal on the [place] [facility] dolly. Simply click on "Patient Portal" and then log into your account. If you would like to receive a full copy of your medical records, please contact the [facility] Medical Records Department by calling [phone], Tuesday through Tuesday between 8 a.m. and 4:30 p.m. HOW TO SAFELY DISPOSE OF PRESCRIPTION MEDICATIONS Please use one of the following methods to safely dispose of your unused medications. 1.Use a drug disposal kit: the drug disposal pouch allows you to safely discard your old and unuseddrugs. Ask your nurse to give you one when you are discharged.2.Visit a local take-back location: Many local pharmacies and police departments have programs that collect old and unwanted prescriptiondrugs. Call your local pharmacy or go to http://Airpowered.OpenSilo/1E9Vp7j to find one close to you.3.Make use of household items: Use cat litter or old coffee grounds to dispose medications if other options arenot available. Mix your drugs with these household products, seal them in an airtight container andthrow it into the garbage. Call [facility]: [phone] to be sure your drugs can be disposed of in this way. Some medicines may require a different approach.4.Never flush your medications down the toilet. IF YOU HAVE BEEN PRESCRIBED AN OPIOID FOR PAIN If you have been prescribed an opioid (such as hydrocodone, oxycodone or morphine), it is critical to understand the possible side effects and risks of opioid pain medications. Even when taken as directed, opioids can have several side effects including: Tolerance, meaning you might need to take more of a medication for the same pain relief. Nausea, vomiting and/or constipation. Sleepiness, dizziness, dry mouth, confusion, depression or itching. Physical dependence, meaning you have withdrawal symptoms when a medication is stopped, can develop within a few days. KNOW YOUR RESPONSIBILITIES It is important to know exactly how much and how often to take the opioid pain medications you are prescribed. Never take opioids in higher amounts or more often than prescribed. Do not combine opioids with alcohol or other drugs that cause drowsiness, such as benzodiazepines, also known as benzos, including diazepam and alprazolam, muscle relaxants or sleep aids. Never sell or share prescription opioids. This is illegal. Store opioids in a secure place and out of reach of others (including children, family, friends and visitors). The last page of this document has been signed and retained as a CHART COPY. Signatures Patient Education Materials Monitored Anesthesia Care, Care After Colonoscopy, Adult, Care After, Nlst-ci-Tdbm Colon Polyps Medication Leaflets My discharge plan and instructions have been reviewed and explained to me and I,TAYLOR RUEDA understand my current condition and have read and understand these discharge instructions. I have received a written copy of the plan/instructions. If I have questions, I am aware that I should contact my d octor. Patient/Carpenter Supervisor Signature: Date/Time: Relationship to Patient: Witness Name/Signature: Date/Time: [facility]07-17-2024 Note Indication for Surgery Colorectal cancer screening Preoperative Diagnosis Colorectal cancer screening Postoperative Diagnosis 1 mm diminutive appearing rectal polyp Operation Colonoscopy with biopsy polypectomy Surgeon(s) Keyanna Herr D.O. Anesthesia MAC Estimated Blood Loss None Specimen(s) Rectal polyp Complications None Technique The patient was evaluated in the preoperative area and surgical consent was obtained. She was then brought to endoscopy and monitored on pulse oximetry, cardiac monitoring and placed on supplemental oxygen n. She was placed in left lateral decubitus position and a surgical timeout was obtained. Sedation was provided by anesthesia. A digital exam was unremarkable. The colonoscope was carefully inserted into the rectum advanced towards the cecum. Cecal pouch appeared normal. Scope was then carefully checked under 6-minute withdrawal with a good prep. A small diminutive appearing rectal polyp was identified and removed with biopsy polypectomy. Retroflexion in the rectum was normal. The scope was removed. Patient was then transferred to the recovery area in stable condition vital signs. Discharge summary: 1. Final Diagnosis: 1 mm diminutive appearing rectal polyp 2. Outcome: Patient tolerated procedure well without complication 3. Disposition: Patient was discharged home to follow previous diet and medications 4. Follow-up care: Follow-up with primary care physician as scheduled. Repeat exam in 7 years Digitally Signed by KEYANNA HERR DO on 05/09/2024 08:57 AM [facility]07-17-2024 Anesthesiology Consult note Patient: TAYLOR RUEDA Age: 58 years Sex: Female : 1965 Associated Diagnoses: None Author: AURELIA KWONG APRN-INVENTORY ASSOCIATE Preoperative Information Anesthesia history Patient's history: negative. Family's history: negative. Health Status Allergies: Allergic Reactions (Selected) NKA, Allergies (1) ActiveSeverityReaction NKANone Documented Current medications: (Selected) Inpatient Medications Ordered Lactated Ringers Infusion 1,000 mL: 20 mL/hr, Intravenous Prescriptions Prescribed PEG-3350 with Electrolytes (Eqv-GoLYTELY) oral powder for reconstitution: See Instructions, Take asdirected 1 day before colonoscopy. Follow instructions as provided by your GI provider at [facility]., 1 EA, 0 Refill(s) Premarin 0.625 mg/g vaginal cream with applicator: See Instructions, 0.5 gram(s) Vaginal twice weekly, 30 gram(s), 0 Refill(s) Documented Medications Documented Multivitamin: 1 tab(s), Oral, Daily, 0 Refill(s), Medications (1) Active Scheduled: (0) Continuous: (1) Lactated Ringers Infusion 1,000 mL 1,000 mL, Intravenous, 20 mL/hr PRN: (0) Problem list: No qualifying data available Histories Past Medical History: No active or resolved past medical history items have been selected or recorded. Family History: Cancer Mother Brother Hypertension Father Brother Heart disease Father Osteoporosis Mother Alcohol abuse Father Paternal Grandfather Stroke Maternal Grandfather Mental illness Father Procedure history: Tooth extraction ([id number]). Social History: Social & Psychosocial Habits Alcohol 04/25/2024 Use: Current Frequency: 1-2 times per month Substance Abuse 04/25/2024 Use: Never Tobacco 05/09/2024 Tobacco Use: Never (less than 100 in l Home/Environment 05/09/2024 Living situation: Home/Independent Nutrition/Health 04/25/2024 Caffeine intake amount: 2 daily Physical Examination Vital Signs 05/09/2024 8:23 EDT Temperature Temporal Artery 37.0 DegC Peripheral Pulse Rate 71 bpm Respiratory Rate 18 br/min Systolic Blood Pressure Non-Invasive 130 mmHg Diastolic Blood Pressure Non-Invasive 74 mmHg Vital Signs (last 24 hrs) Last Charted Temp Mbtocufx08.0 DegC (MAY 09 08:23) VOW742 mmHg (MAY 09:) DBP74 mmHg (MAY 09:) Measurements from flowsheet : Measurements 05/09/2024 8:23 EDT Height 172.72 cm Admission Weight 61.36 kg [place] Body Weight 63.90 kg Admission Body Mass Index 20.57 m2 Pain assessment: Pain Assessment 05/09/2024 8:23 EDT Primary Pain Intensity 0 Pain Scale Type 0-10 Pain scale . General: Alert and oriented. Airway: Normal temporomandibular joint mobility. Mallampati classification: II (soft palate, fauces, uvula visible). Dentition Evaluation: Denies loose/chipped teeth. Respiratory: Lungs are clear to auscultation, Respirations are non-labored. Cardiovascular: Normal rate, Regular rhythm. Neurologic: Alert, Oriented. Review / Management Results review: No qualifying data available , Lab results 05/09/2024 8:34 EDT SN - PP - Body Position Lateral Right Side-up Standard Intra-op 05/09/2024 8:34 EDT SN - GCD - Post-operative Diagnosis SCREENING SN - GCD - Case Level OPD Level 3 05/09/2024 8:34 EDT SN - CAt - Case Attendee SN - CAt - Case Attendee SN - CAt - Case Attendee SN - CAt - Case Attendee SN - CAt - Case Attendee SN - CAt - Case Attendee SN - CAt - Case Attendee SN - CAt - Case Attendee SN - CAt - Role Performed Primary Surgeon SN - CAt - Role Performed INVENTORY ASSOCIATE SN - CAt - Role Performed Jewel Hole Gauger 1 SN - CAt - Role Performed Automatic Grinding Machine Operator 1 05/09/2024 8:34 EDT Continuous IV Infusions LR Hand Right 05/09/2024 22 gauge Peripheral IV Activity: Insert new site Peripheral IV Site Condition: No complications Peripheral IV Number of Attempts: 1 05/09/2024 8:33 EDT Lactated Ringers Injection Begin Bag 1,000 mL mL 05/09/2024 8:23 EDT Height 172.72 cm Admission Weight 61.36 kg [place] Body Weight 63.90 kg Admission Body Mass Index 20.57 m2 Temperature Temporal Artery 37.0 DegC Peripheral Pulse Rate 71 bpm Respiratory Rate 18 br/min Systolic Blood Pressure Non-Invasive 130 mmHg Diastolic Blood Pressure Non-Invasive 74 mmHg Primary Pain Intensity 0 Pain Scale Type 0-10 Pain scale Heart Rhythm Regular Respirations Unlabored Respiratory Pattern Regular Cough None Oxygen Therapy Room air Oxygen Saturation 97 % Abdomen Description Non-distended, Soft Urinary Elimination Voiding, no difficulties Skin Temperature Warm Skin Description M[place]on[place], Normal for ethnicity, Dry Skin Moisture General Dry IV Present Present Neurological Symptoms Patient denies Characteristics of Speech Clear Level of Consciousness Alert Strength All Extremities Strong Affect/Behavior Appropriate, Calm, Cooperative Orientation Oriented x 4 Allergies Yes Anesthesia Extension Set Applied Yes Freight Car Inspector On Yes Colon Prep Results Excellent Consent Form Signed Yes Patient Dressed In Hospital gown History & Physical Update On Chart Yes History & Physical On Chart Yes Bowel Prep Completed Yes Obstructive Sleep Apnea Assess Completed Yes Orientation Assessment Oriented x 4 Assistive Device None Positioning Repositions self Activity Status ADL Awake NPO Status Maintained Standard Safety ID band on, Call device within reach, Bed in low position, Wheels locked, Visitor at bedside Patient ID Band on and Verified Yes Implants Verified Yes Pacemaker/AICD Verified Yes Last Fluid Intake 05/09/2024 7:00 Last Food Intake 05/07/2024 17:30 Last Void 05/09/2024 8:24 05/09/2024 8:21 EDT Designated Person #1 We May Share PHI MYLES RUEAD [phone] Designated Person #1 Relationship Son Privacy Restrictions Requested None Status No, per patient Sensory Deficits None Sleep Apnea Snore No Sleep Apnea Tired No Sleep Apnea Obstruction No Sleep Apnea Pressure No Sleep Apnea BMI No Sleep Apnea Age Yes Sleep Apnea Neck No Sleep Apnea Gender No Sleep Apnea Score 1 Diagnosed With Sleep Apnea No Advanced Directives No - refuses information Infectious Disease Symptoms Patient states no symptoms Infectious Disease Recent Exposure No Alcohol and Drug Use No Employee of Institutional Living No Health Care Employee No History of Exposure to TB No History of Positive Chest X-Ray for TB No History of Positive TB Skin Test No Homeless No Known Immunosuppression No Recent Immigrant No Resident of Institutional Living No Bloody Sputum No Fatigue No Fever No Loss of Appetite No Night Sweats No Persistent Cough > 3 Weeks No Weight Loss No Barriers to Learning None evident Teaching Method Explanation Preferred Spoken Language Dutch Preferred Written Language Dutch Teaching Evaluation No further teaching needed Safety Brochure Information Reviewed Unable to complete [facility] Video Viewed No Information Given by Unable to obtain Patient's Current Physicians RENEE RUTH DFP Discharge To, Anticipated Home with family care Prev Test Positive/Diagnosis w/COVID-19 Yes Previous COVID-19 Positive Date Current Quarantine/Isolated any Illness No Any Contact with Sick Animals/Birds No Traveled Anywhere in Last 30 Days No Lost Weight Unintentionally Recently No Eat Poorly Due to Decreased Appetite No Total MST Score 0 No Personal Devices, Patient Valuables None Anesthesia/Transfusions None Admission Note-Nursing Same Day Patient History 05/09/2024 7:05 [facility] History and Physical . Assessment and Plan [employer] (ASA) physical status classification: Class II. Anesthetic Preoperative Plan Anesthetic technique: MAC. Postoperative pain management: Per surgeon. Risks discussed: serious complications. Digitally Signed by AURELIA KWONG on 05/09/2024 08:35 AM [facility]07-17-2024 Note [place] ADMISSION HISTORY AND PHYSICIAL CHIEF COMPLAINT: Colorectal cancer screening HISTORY OF PRESENT ILLNESS: Colorectal cancer screening REVIEW OF SYSTEMS: Constitutional: denies weight loss Cardiovascular:denies chest pain, palpitations Respiratory:denies shortness of breath Gastrointestinal:no abd pain Musculoskeletal: no arthralgias Skin: no rashes ACTIVE PROBLEMS: No qualifying data available for Problems MEDICATIONS: Active Inpt Meds: None Active PRN Meds: None One Time Meds: None Active IV Meds: None ALLERGIES: (1) NKA FAMILY HISTORY: SOCIAL HISTORY: PHYSICAL EXAM: VITALS: No Data Available 24 Hr Tmax: No Data Available 36 Hr Tmax: No Data Available Vital Signs are the last 5 in the past 48 hours. Weights display the last 5 within 7 days. Initial Wt: No Data Available Current Wt: No Data Available physical exam alert and oriented cardio; regular without murmur pulm; clear abd; soft, nontender LABS: No 36hr Lab Data DIAGNOSTICS: IMPRESSION: Colorectal cancer screening PLAN: Proceed with colonoscopy as discussed in the office Digitally Signed by KEYANNA HERR DO on 05/09/2024 07:06 AM [facility]06-13-2024 Evaluation + Plan note Future Scheduled Tests Radiology* MA Mammo Screening Bilateral w/ Wai 04/05/24 [facility] Evaluation + Plan note Future Appointments Appointment Date:04/25/2024 11:30:00 AM Scheduled Provider: Location:[facility] Appointment Type:GI OV Consult [facility] Evaluation + Plan note Future Scheduled Tests Radiology* MA Mammo Screening Bilateral w/ Awi 04/19/25 [facility] Evaluation + Plan note Future Appointments Appointment Date:04/09/2025 03:30:00 PM Scheduled Provider:RENEE AVILA Location:[facility] Appointment Type:PC Wellness Annual Future Scheduled Tests Radiology* MA Mammo Screening Bilateral w/ Wai 04/19/25 [facility] Hospital course Narrative No data available for this section [facility] Hospital Discharge instructions No data available for this section [facility] Progress note No data available for this section [facility] Reason for referral (narrative)No reason for referral information availableWM[facility] Work Phone: Summary Purpose Family History Relationship Condition Age at Onset Recorded Date/T corina Not Specified Cardiac disease Unknown Myocardial infarction Unknown Malignant neoplasm Unknown Hypertension Unknown Cerebrovascular accident (CVA) Unknown No Family History Records Found Advance Directives No Advanced Directives Records Found Advance Directive Response Recorded Date/ Time Living Will No March 13, 2025 6 :58am Do you have a Healthcare Power of Chemist? No March 13, 2025 6:58am Advance Directives No March 13 6:58am Advance Directive Response Recorded Date/ Time Living Will No March 13, 2025 6 :58am Do you have a Healthcare Power of Chemist? No March 13, 2025 6:58am Advance Directives on File No May 01, 2025 8:37am Living Will No May 01, 2025 8 :37am Do you have a Healthcare Power of Chemist? No May 01, 2025 8:37am Advance Directives No May 02 8:37am Advance Directive Response Recorded Date/ Time Living Will No May 09, 2025 9:38am Do you have a Healthcare Power of Chemist? No May 09, 2025 9:38am Advance Directives No May 09 9:38am Living Will No March 13, 2025 6 :58am Do you have a Healthcare Power of Chemist? No March 13, 2025 6:58am Advance Directives on File No May 01, 2025 8:37am Living Will No May 01, 2025 8 :37am Do you have a Healthcare Power of Chemist? No May 01, 2025 8:37am Chief Complaint and Reason for Visit Chief Complaint Admit Date NEW PATIENT : VARICOSE VEINS December 26, 2024 9:48am RLE VARICOSE VEINS, REFLUX STUDY December 232024 7:46am Reason for Visit Admit Date Acute venous stasis dermatitis of right lower extremity December 26, 2024 9:48am Symptomatic varicose veins of right lowe r extremity December 26, 2024 9:48am Venous stasis ulcer limited to breakdown of skin with varicose veins December 26, 2024 9:48am Chief Complaint Admit Date NEW PATIENT : VARICOSE VEINS December 26, 2024 9:48am RLE VARICOSE VEINS, REFLUX STUDY December 232024 7:46am 6 WK FU February 07, 2025 10: 18am I83.891 Varicose veins of right lower ex tremity wi March 13, 2025 6:42am I83.891 Varicose veins of right lower ex tremity wi March 13, 2025 7:53am Reason for Visit Admit Date Acute venous stasis dermatitis of right lower extremity December 26, 2024 9:48am Symptomatic varicose veins of right lowe r extremity December 26, 2024 9:48am Venous stasis ulcer limited to breakdown of skin with varicose veins December 26, 2024 9:48am Acute venous stasis dermatitis of right lower extremity February 07, 2025 10:18am Symptomatic varicose veins of right lowe r extremity February 07, 2025 10:18am Venous stasis ulcer limited to breakdown of skin with varicose veins February 07, 2025 10:18am Venous stasis ulcer limited to breakdown of skin with varicose veins March 13, 2025 6:42am Chief Complaint Admit Date NEW PATIENT : VARICOSE VEINS December 26, 2024 9:48am RLE VARICOSE VEINS, REFLUX STUDY December 232024 7:46am 6 WK FU February 07, 2025 10: 18am I83.891 Varicose veins of right lower ex tremity wi March 13, 2025 6:42am I83.891 Varicose veins of right lower ex tremity wi March 13, 2025 7:53am Post Chemical Ablation 3-4 WK FU April 102024 1:51pm Chief Complaint Admit Date RLE VARICOSE VEINS, REFLUX STUDY December 232024 7:46am 6 WK FU February 07, 2025 10: 18am I83.891 Varicose veins of right lower ex tremity wi March 13, 2025 6:42am I83.891 Varicose veins of right lower ex tremity wi March 13, 2025 7:53am Post Chemical Ablation 3-4 WK FU April 102024 1:51pm RIGHT LOWER EXTREM May 02, 2025 8:18 am RIGHT LOWER EXTREM May 02, 2025 1:35 pm Reason for Visit Admit Date Acute venous stasis dermatitis of right lower extremity February 07, 2025 10:18am Symptomatic varicose veins of right lowe r extremity February 07, 2025 10:18am Venous stasis ulcer limited to breakdown of skin with varicose veins February 07, 2025 10:18am Venous stasis ulcer limited to breakdown of skin with varicose veins March 13, 2025 6:42am Acute venous stasis dermatitis of right lower extremity April 10, 2025 1:51pm Symptomatic varicose veins of right lowe r extremity April 10, 2025 1:51pm Venous stasis ulcer limited to breakdown of skin with varicose veins April 10, 2025 1:51pm Chief Complaint Admit Date RLE VARICOSE VEINS, REFLUX STUDY December 232024 7:46am 6 WK FU February 07, 2025 10: 18am I83.891 Varicose veins of right lower ex tremity wi March 13, 2025 6:42am I83.891 Varicose veins of right lower ex tremity wi March 13, 2025 7:53am Post Chemical Ablation 3-4 WK FU April 102024 1:51pm RIGHT LOWER EXTREM May 02, 2025 8:18 am RIGHT LOWER EXTREM May 02, 2025 1:35 pm Varicose veins of right lower extremity with other May 09, 2025 9:24am Additional Source Comments Patient Care team informatio n (unrecognized section and content) Team Status: Active Member Role Status Dates Renee Avila NP, [employer]SIAN [employer] CURATOR-C Primary Care Provider Active Team Status: Inactive Member Role Status Dates HANY Burch Attending Provider Active Star t: December 26, 2024 End: December 26, 2024 Renee Avila NP, [employer]SIAN [employer] CURATOR-C Primary Care Provider Active Start: December 26, 2024 End: December 26, 2024 Dr. Balbina Elder MD Referring Provider Active S tart: December 26, 2024 End: December 26, 2024 Team Status: Inactive Member Role Status Dates Renee Avila NP ASIAN ART CURATOR-C Primary Care Provider Active Start: January 18, 2025 End: January 18, 2025 HANY Burch Attending Provider Active Star t: January 18, 2025 End: January 18, 2025 HANY Burch Referring Provider Active Star t: January 18, 2025 End: January 18, 2025 Team Status: Active Member Role Status Dates Renee Avila NP ASIAN ART CURATOR-C Primary Care Provider Active Start: January 18, 2025 Dr. Roly Flores MD Attending Provider Active S tart: January 18, 2025 Team Status: Active Member Role Status Dates Renee Avila NP, ASIAN ART CURATOR-C Primary Care Provider Active Start: January 18, 2025 Dr. Roly lFores MD Attending Provider Active S tart: January 18, 2025 HANY Burch Referring Provider Active Star t: January 18, 2025 Team Status: Inactive Member Role Status Dates Renee Avila NP, ASIAN ART CURATOR-C Primary Care Provider Active Start: February 07, 2025 End: February 07, 2025 Renee Avila NP, [employer] CURATOR-C Referring Provider Active Start: February 07, 2025 End: February 07, 2025 HANY Burch Attending Provider Active Star t: February 07, 2025 End: February 07, 2025 Team Status: Inactive Member Role Status Dates Renee Avila ASIAN ART CURATOR, [employer]SIAN ART CURATOR-C Primary Care Provider Active Start: March 13, 2025 End: March 13, 2025 Dr. Roly Flores MD Attending Provider Active S tart: March 13, 2025 End: March 13, 2025 Dr. Roly Flores MD Referring Provider Active S tart: March 13, 2025 End: March 13, 2025 Team Status: Active Member Role Status Dates Renee Avila ASIAN ART CURATOR, ASIAN ART CURATOR-C Primary Care Provider Active Start: March 13, 2025 Dr. Roly Flores MD Attending Provider Active S tart: March 13, 2025 Dr. Roly Flores MD Referring Provider Active S tart: March 13, 2025 Dr. Roly Flores MD Other Provider Active Start : March 13, 2025 Team Status: Inactive Member Role Status Dates Renee Avila ASIAN ART CURATOR, ASIAN ART CURATOR-C Primary Care Provider Active Start: April 10, 2025 End: April 10, 2025 Renee Avila ASIAN ART CURATOR, [employer]SIAN ART CURATOR-C Referring Provider Active Start: April 10, 2025 End: April 10, 2025 HANY Burch Attending Provider Active Star t: April 10, 2025 End: April 10, 2025 Team Status: Active Member Role/Relationship Status Dates Renee Avila ASIAN ART CURATOR, ASIAN ART CURATOR-C Primary Care Provider Active Team Status: Inactive Member Role/Relationship Status Dates Renee Avila ASIAN ART CURATOR, ASIAN ART CURATOR-C Primary Care Provider Active Start: January 18, 2025 End: January 18, 2025 HANY Burch Attending Provider Active Star t: January 18, 2025 End: January 18, 2025 HANY Burch Referring Provider Active Star t: January 18, 2025 End: January 18, 2025 Team Status: Active Member Role/Relationship Status Dates Renee Avila ASIAN ART CURATOR, ASIAN ART CURATOR-C Primary Care Provider Active Start: January 18, 2025 Dr. Roly Flores MD Attending Provider Active S tart: January 18, 2025 HANY Burch Referring Provider Active Star t: January 18, 2025 Team Status: Inactive Member Role/Relationship Status Dates Renee Avila ASIAN ART CURATOR, ASIAN ART CURATOR-C Primary Care Provider Active Start: February 07, 2025 End: February 07, 2025 Renee Avila ASIAN ART CURATOR, ASIAN ART CURATOR-C Referring Provider Active Start: February 07, 2025 End: February 07, 2025 HANY Burch Attending Provider Active Star t: February 07, 2025 End: February 07, 2025 Team Status: Inactive Member Role/Relationship Status Dates Renee Avila ASIAN ART CURATOR, ASIAN ART CURATOR-C Primary Care Provider Active Start: March 13, 2025 End: March 13, 2025 Dr. Roly Flores MD Attending Provider Active S tart: March 13, 2025 End: March 13, 2025 Dr. Roly Flores MD Referring Provider Active S tart: March 13, 2025 End: March 13, 2025 Team Status: Active Member Role/Relationship Status Dates Renee Avila ASIAN ART CURATOR, ASIAN ART CURATOR-C Primary Care Provider Active Start: March 13, 2025 Dr. Roly Flores MD Attending Provider Active S tart: March 13, 2025 Dr. Roly Flores MD Referring Provider Active S tart: March 13, 2025 Dr. Roly Flores MD Other Provider Active Start : March 13, 2025 Team Status: Inactive Member Role/Relationship Status Dates Renee Avila ASIAN ART CURATOR, ASIAN ART CURATOR-C Primary Care Provider Active Start: April 10, 2025 End: April 10, 2025 Renee Austin ASIAN ART CURATOR, ASIAN ART CURATOR-C Referring Provider Active Start: April 10, 2025 End: April 10, 2025 HANY Burch Attending Provider Active Star t: April 10, 2025 End: April 10, 2025 Team Status: Inactive Member Role/Relationship Status Dates Renee Avila ASIAN ART CURATOR, ASIAN ART CURATOR-C Primary Care Provider Active Start: May 02, 2025 End: May 02, 2025 Dr. Roly Flores MD Attending Provider Active S tart: May 02, 2025 End: May 02, 2025 Dr. Roly Flores MD Referring Provider Active S tart: May 02, 2025 End: May 02, 2025 Team Status: Active Member Role/Relationship Status Dates Renee Avila ASIAN ART CURATOR, ASIAN ART CURATOR-C Primary Care Provider Active Start: May 02, 2025 Dr. Roly Flores MD Attending Provider Active S tart: May 02, 2025 Dr. Roly Flores MD Referring Provider Active S tart: May 02, 2025 Dr. Roly Flores MD Other Provider Active Start : May 02, 2025 Team Status: Inactive Member Role/Relationship Status Dates Renee Avila ASIAN ART CURATOR, ASIAN ART CURATOR-C Primary Care Provider Active Start: May 09, 2025 End: May 09, 2025 Dr. Roly Flores MD Attending Provider Active S tart: May 09, 2025 End: May 09, 2025 Dr. Roly Flores MD Referring Provider Active S tart: May 09, 2025 End: May 09, 2025 INFORMATION SOURCE (unrecogn ized section and content) DATE CREATED AUTHOR 06/05/2024 [facility] ([place]) DATE CREATED AUTHOR AUTHOR'S ORGANIZ ATION 04/08/2025 [facility] DATE CREATED AUTHOR AUTHOR'S ORGANIZ ATION 05/14/2025 [facility] Goals (unrecognized section and content) Goals may be documented in a n alternate section FOR RECORDS PERTAINING TO PATIENTS WHO ARE OR HAVE BEEN ENROLLED IN A CHEMICAL DEPENDENCY/SUBSTANCEABUSE PROGRAM, SOME INFORMATION MAY BE OMITTED. This clinical summary was aggregated from multiple sources. Caution should be exercised in using it in the provision of clinical care. This summary normalizes information from multiple sources, and as a consequence, information in this document may materially change the coding, format and clinical context of patient data. In addition, data may be omitted in some cases. CLINICAL DECISIONS SHOULD BE BASED ON THE PRIMARY CLINICAL RECORDS. [facility] [employer] [facility]. provides no warranty or guarantee of the accuracy or completeness of information in this document.
== END | disposition home or self-care (01) ==
LOC: CVS 10:51
PROVIDERS: PCP Nurse Practitioner Family; Referring Provider Physician Assistant; Visit Provider Physician Assistant
DX: M79.604 Pain in right leg (principal); M79.89 Other specified soft tissue disorders; I83.891 Varicose veins of right lower extremity with other complications
CPT/HCPCS: 93971